=== PATIENT | male | born 1945 | race Caucasian/White ===

== ENCOUNTER 2017-10-18 00:05 | Inpatient (IN) | payer MEDICARE, OTHER ==
[~2017-10-18] VITALS: Ht 167.6 cm; Wt 71.4 kg
[~2017-10-18 00:05] MED LIST: ACET-1008 PO; AMLO2.5T2 PO; AMLO2.5T21 PO; ASPI1CPM9 PO; ATI0.5T PO; BUPR200T2 PO; GABA-532 PO; HYDR-3964 PO; MAG30ORA PO; MAGN400O6 PO; NAPR250T4 PO; PANT-47 PO; QUET200T PO; SIMV20TA5 PO; WOOL454C TP
[2017-10-18] MEDS ORDERED: normal saline 1000ML IV soln IV ONE (00:55)
[2017-10-18] MEDS ORDERED: piperacillin/tazo 3.375gm/50ml 50 ML IV ONE (00:55)
[2017-10-18 01:02] LABS: BASOPHILS % (AUTO) 0.5 % (0-1); EOSINOPHILS # (AUTO) 0.1 X10'3 (0-0.9); EOSINOPHILS % (AUTO) 1.2 % (0-6); HEMATOCRIT 39.3 % (42.0-52.0); HEMOGLOBIN 12.7 g/dl (14.0-17.9); LYMPHOCYTES # (AUTO) 1.6 X10'3 (1.1-4.8); LYMPHOCYTES % (AUTO) 25.7 % (21-51); MEAN CORPUSCULAR HGB CONC 32.3 % (33.0-36.5); MEAN CORPUSCULAR VOLUME 89.5 FL (78-98); MEAN PLATELET VOLUME 7.9 FL (7.4-10.4); MONOCYTES # (AUTO) 1.4 X10'3 (0-0.9); MONOCYTES % (AUTO) 22.5 % (2-12); NEUTROPHILS % (AUTO) 50.1 % (42-75); PLATELET COUNT 244 X10'3 (140-440); RED CELL DISTRIBUTION WIDTH 15.9 % (11.5-14.5); WHITE BLOOD COUNT 6.1 X10'3 (4.5-11.0)
[2017-10-18 01:09] LABS: PARTIAL THROMBOPLASTIN TIME 27 SECONDS (22-32); PROTHROMBIN TIME 10.5 SECONDS (9.0-12.0)
[2017-10-18 01:12] LABS: ALANINE AMINOTRANSFERASE 54 U/L (12-78); ALBUMIN 3.3 G/DL (3.4-5.0); ALBUMIN/GLOBULIN RATIO 0.7 (1.1-1.5); ALKALINE PHOSPHATASE 164 IU/L (46-116); ANION GAP 17 (8-16); ASPARTATE AMINO TRANSFERASE 91 U/L (10-37); BILIRUBIN,TOTAL 0.3 MG/DL (0.1-1.0); BLOOD UREA NITROGEN 13 MG/DL (7-18); BUN/CREATININE RATIO 12.6 (5.4-32.0); CHLORIDE 103 MMOL/L (99-107); CREATININE 1.03 MG/DL (0.60-1.10); GLUCOSE 101 MG/DL (70-104); MAGNESIUM 1.9 MG/DL (1.5-2.4); SODIUM 140 MMOL/L (135-145); TOTAL CARBON DIOXIDE 20.3 MMOL/L (24-32); eGFR 71 ML/MIN
[2017-10-18 01:14] LABS: POTASSIUM 2.9 MMOL/L (3.5-5.1)
[2017-10-18] MEDS ORDERED: potassium Cl 40 mEq/NS 500ml IV ONE (01:20)
[2017-10-18] MEDS ORDERED: ondansetron/PF 4mg/2ml inj IV ONE (01:35)
[2017-10-18] MEDS ORDERED: morphine 4 MG/ML inj SYRINge IV ONE (01:35)
[2017-10-18 01:57] LABS: CLARITY,URINE CLEAR (Clear); COLOR,URINE YELLOW (Yellow); GLUCOSE, URINE NEGATIVE (Neg); KETONES,URINE TRACE mg/dl (Neg); LEUKOCYTE ESTERASE ,URINE SMALL (Neg); NITRITES, URINE POSITIVE (Neg); OCCULT BLOOD,URINE NEGATIVE (Neg); PROTEIN,URINE NEGATIVE (Neg); UROBILINOGEN,URINE 0.2 E.U/dL (0.2-1.0)
[2017-10-18 01:58] LABS: UA COLLECTION TYPE STRAIGHT CATH
[2017-10-18 02:03] LABS: BACTERIA,URINE 3+ /HPF (Neg); RBC,URINE NONE SEEN /HPF (0-2); SQUAMOUS EPITHELIAL CELL,UR NONE SEEN /LPF (FEW)
[2017-10-18] MEDS ORDERED: potassium Cl 40MEQ/NS 500ml 500 ML IV ONE (02:15)
[2017-10-18] MEDS ORDERED: normal saline 1000ml 1,000 ML IV ONE (02:30)
[2017-10-18] MEDS ORDERED: ondansetron/PF 4mg/2ml inj IV PRN (04:25)
[2017-10-18] MEDS ORDERED: mag hydrox/Alum hydrox/simeth 30ml oral suspension PO PRN (04:25)
[2017-10-18] MEDS ORDERED: magnesium hydroxide 30ml (MOM) UD suspension PO PRN (04:25)
[2017-10-18] MEDS ORDERED: LORazepam 0.5 MG tablet PO PRN (04:30)
[2017-10-18 05:24] VITALS: BP 135/79
[2017-10-18] MEDS: normal saline 1000ml 1,000 ML IV SCH ×2 (06:58→17:12)
[2017-10-18] MEDS: heparin, porcine 5000 units/ml vial SQ SCH ×2 (08:00→20:25)
[2017-10-18] MEDS: CefTRIAXone/D5W-Rocephin 1gm 50 ML IV SCH (08:07)
[2017-10-18 10:00] VITALS: BP 153/85
[2017-10-18 18:00] VITALS: BP 152/84
[2017-10-18] MEDS ORDERED: potassium Cl 20 mEq SR tablet PO PRN (19:35)
[2017-10-18] MEDS ORDERED: potassium Cl 40MEQ/NS 500ml 500 ML IV PRN ×2 (19:35)
[2017-10-18] MEDS: potassium Cl 20 mEq SR tablet PO PRN (20:15)
[2017-10-18] MEDS: lactobacillus rhamnosus 10,000 MMU CELLS/CAPSULE PO SCH (20:15)
[2017-10-18] MEDS: acetaminophen 325mg tablet PO PRN (20:24)
[2017-10-18] MEDS ORDERED: amLODIPine 2.5mg tablet PO SCH (21:00)
[2017-10-18] MEDS ORDERED: atorvastatin 10mg tablet PO SCH (21:00)
[2017-10-18] MEDS ORDERED: gabapentin 300mg capsule PO SCH (21:00)
[2017-10-18 22:00] VITALS: BP 150/84
[2017-10-19] MEDS: potassium Cl 20 mEq SR tablet PO PRN ×2 (00:08→04:09)
[2017-10-19 05:48] LABS: HEMATOCRIT 33.9 % (42.0-52.0); HEMOGLOBIN 11.6 g/dl (14.0-17.9); MEAN CORPUSCULAR HEMOGLOBIN 30.5 PG (27.0-31.0); MEAN CORPUSCULAR HGB CONC 34.3 % (33.0-36.5); MEAN CORPUSCULAR VOLUME 89.1 FL (78-98); MEAN PLATELET VOLUME 7.7 FL (7.4-10.4); PLATELET COUNT 189 X10'3 (140-440); RED BLOOD COUNT 3.81 X10'6 (4.70-6.10); RED CELL DISTRIBUTION WIDTH 16.7 % (11.5-14.5); WHITE BLOOD COUNT 5.1 X10'3 (4.5-11.0)
[2017-10-19 06:00] VITALS: BP 143/87
[2017-10-19 06:08] LABS: ALANINE AMINOTRANSFERASE 39 U/L (12-78); ALBUMIN 2.9 G/DL (3.4-5.0); ALBUMIN/GLOBULIN RATIO 0.7 (1.1-1.5); ALKALINE PHOSPHATASE 138 IU/L (46-116); ANION GAP 9 (8-16); ASPARTATE AMINO TRANSFERASE 53 U/L (10-37); BILIRUBIN,TOTAL 0.3 MG/DL (0.1-1.0); BLOOD UREA NITROGEN 8 MG/DL (7-18); BUN/CREATININE RATIO 8.5 (5.4-32.0); CALCIUM 8.6 MG/DL (8.5-10.1); CHLORIDE 106 MMOL/L (99-107); CREATININE 0.94 MG/DL (0.60-1.10); GLUCOSE 97 MG/DL (70-104); POTASSIUM 4.2 MMOL/L (3.5-5.1); SODIUM 138 MMOL/L (135-145); TOTAL CARBON DIOXIDE 23.1 MMOL/L (24-32); TOTAL PROTEIN 7.2 G/DL (6.4-8.2); eGFR 79 ML/MIN
[2017-10-19 06:14] LABS: ANISOCYTOSIS 1+; PLATELET ESTIMATE NORMAL; TOTAL CELLS COUNTED 100
[2017-10-19] MEDS: lactobacillus rhamnosus 10,000 MMU CELLS/CAPSULE PO SCH (08:30)
[2017-10-19] MEDS: CefTRIAXone/D5W-Rocephin 1gm 50 ML IV SCH (08:31)
[2017-10-19] MEDS: heparin, porcine 5000 units/ml vial SQ SCH (08:31)
[2017-10-19] MEDS: acetaminophen 325mg tablet PO PRN (08:40)
[2017-10-19] MEDS ORDERED: LEVO500T2 PO (11:04)
[2017-10-19 15:30] VITALS: BP 147/97
== END 2017-10-19 17:51 | disposition home health service (06) | DRG 872 ==
LOC: ER 00:06 → ED HOLD 04:24 → CMPBEDREQ 05:00 → ORTHO 4S 05:13
PROVIDERS: ADMIT Internal Medicine; ATTEND Internal Medicine
PROC: 4A10X4Z Monitoring of Central Nervous Electrical Activity, External Approach (ICD-10-PCS; principal; 2017-10-18)
DX: A41.9 Sepsis, unspecified organism (principal); N39.0 Urinary tract infection, site not specified; I69.351 Hemiplegia and hemiparesis following cerebral infarction affecting right dominant side; E87.2 Acidosis; E86.0 Dehydration; R65.20 Severe sepsis without septic shock; E87.6 Hypokalemia; N18.9 Chronic kidney disease, unspecified; E78.00 Pure hypercholesterolemia, unspecified; F41.9 Anxiety disorder, unspecified; G47.33 Obstructive sleep apnea (adult) (pediatric); G62.9 Polyneuropathy, unspecified; I12.9 Hypertensive chronic kidney disease with stage 1 through stage 4 chronic kidney disease, or unspecified chronic kidney disease; I25.10 Atherosclerotic heart disease of native coronary artery without angina pectoris; R55 Syncope and collapse; W18.39XA Other fall on same level, initial encounter; B96.1 Klebsiella pneumoniae [K. pneumoniae] as the cause of diseases classified elsewhere; I25.2 Old myocardial infarction; Z99.3 Dependence on wheelchair; Z90.49 Acquired absence of other specified parts of digestive tract; Z95.1 Presence of aortocoronary bypass graft; Z88.2 Allergy status to sulfonamides; Z88.8 Allergy status to other drugs, medicaments and biological substances; Z79.899 Other long term (current) drug therapy; Z85.038 Personal history of other malignant neoplasm of large intestine; Z85.46 Personal history of malignant neoplasm of prostate; Z86.79 Personal history of other diseases of the circulatory system; Y93.89 Activity, other specified; Y99.8 Other external cause status; Y92.098 Other place in other non-institutional residence as the place of occurrence of the external cause
CPT/HCPCS: 36415; 70450; 70544; 70551; 71045; 80053; 81001; 82948; 83605; 83735; 84145; 85025; 85610; 85730; 87040; 87070; 87077; 87088; 87186; 93005; 95816; 97110; 97161; 97530; A4353; A6250; J0696; J1644; J2270; J2405; J2543; J3480; J7030

== ENCOUNTER 2018-04-03 11:21 | Inpatient (IN) | payer MEDICARE, OTHER ==
[~2018-04-03] VITALS: Ht 167.6 cm; Wt 72.0 kg
[~2018-04-03 11:21] MED LIST changes: -ACET-1008 PO; -AMLO2.5T2 PO; -ASPI1CPM9 PO; -BUPR200T2 PO; -HYDR-3964 PO; -MAG30ORA PO; -MAGN400O6 PO; -NAPR250T4 PO; -PANT-47 PO; -QUET200T PO; -WOOL454C TP
[2018-04-03 11:56] LABS: BASOPHILS % (AUTO) 0.4 % (0-1); EOSINOPHILS # (AUTO) 0.1 X10'3 (0-0.9); EOSINOPHILS % (AUTO) 1.3 % (0-6); HEMATOCRIT 37.8 % (42.0-52.0); HEMOGLOBIN 12.4 g/dl (14.0-17.9); LYMPHOCYTES # (AUTO) 1.3 X10'3 (1.1-4.8); LYMPHOCYTES % (AUTO) 19.8 % (21-51); MEAN CORPUSCULAR HEMOGLOBIN 30.2 PG (27.0-31.0); MEAN CORPUSCULAR HGB CONC 32.8 % (33.0-36.5); MEAN PLATELET VOLUME 8.1 FL (7.4-10.4); MONOCYTES # (AUTO) 1.7 X10'3 (0-0.9); MONOCYTES % (AUTO) 25.9 % (2-12); NEUTROPHILS # (AUTO) 3.3 X10'3 (1.8-7.7); NEUTROPHILS % (AUTO) 52.6 % (42-75); PLATELET COUNT 228 X10'3 (140-440); RED BLOOD COUNT 4.11 X10'6 (4.70-6.10); RED CELL DISTRIBUTION WIDTH 15.1 % (11.5-14.5); WHITE BLOOD COUNT 6.4 X10'3 (4.5-11.0)
[2018-04-03 12:03] LABS: INR 1.1 INR; PROTHROMBIN TIME 10.8 SECONDS (9.0-12.0)
[2018-04-03 12:08] LABS: ALANINE AMINOTRANSFERASE 69 U/L (12-78); ALBUMIN 3.3 G/DL (3.4-5.0); ALBUMIN/GLOBULIN RATIO 0.7 (1.1-1.5); ALKALINE PHOSPHATASE 151 IU/L (46-116); ANION GAP 14 (8-16); ASPARTATE AMINO TRANSFERASE 70 U/L (10-37); BILIRUBIN,TOTAL 0.4 MG/DL (0.1-1.0); BLOOD UREA NITROGEN 16 MG/DL (7-18); CALCIUM 8.6 MG/DL (8.5-10.1); CHLORIDE 100 MMOL/L (99-107); GLUCOSE 127 MG/DL (70-104); POTASSIUM 3.2 MMOL/L (3.5-5.1); SODIUM 138 MMOL/L (135-145); TOTAL CARBON DIOXIDE 24.2 MMOL/L (24-32); TOTAL PROTEIN 7.8 G/DL (6.4-8.2); eGFR > 90 ML/MIN
[2018-04-03 12:13] LABS: PLATELET ESTIMATE NORMAL; TOTAL CELLS COUNTED 100
[2018-04-03] MEDS ORDERED: magnesium hydroxide 30ml (MOM) UD suspension PO PRN (12:40)
[2018-04-03] MEDS ORDERED: magnesium Cl slow-release 64mg tablet PO PRN (12:40)
[2018-04-03] MEDS ORDERED: nitroGLYCERIN 0.4mg SUBLingual tab SL PRN (12:40)
[2018-04-03] MEDS ORDERED: HYDROcodone/acetaminophen 5mg/325mg tablet PO PRN (12:40)
[2018-04-03] MEDS ORDERED: HYDROcodone/acetaminophen 10/325mg tab PO PRN (12:40)
[2018-04-03] MEDS ORDERED: potassium Cl 40MEQ/NS 500ml 500 ML IV PRN ×2 (12:40)
[2018-04-03] MEDS ORDERED: magnesium 4gm in 100ml NS 100 ML IV PRN (12:40)
[2018-04-03] MEDS ORDERED: regadenoson 0.4mg/5ml syringe IV PRN (12:40)
[2018-04-03] MEDS ORDERED: ondansetron/PF 4mg/2ml inj IV PRN (12:40)
[2018-04-03] MEDS ORDERED: potassium Cl 20 mEq SR tablet PO PRN (12:40)
[2018-04-03] MEDS ORDERED: mag hydrox/Alum hydrox/simeth 30ml oral suspension PO PRN (12:40)
[2018-04-03] MEDS ORDERED: metoprolol tartrate 1mg/ml inj IV PRN (12:40)
[2018-04-03] MEDS ORDERED: acetaminophen 325mg tablet PO PRN ×2 (12:40)
[2018-04-03] MEDS ORDERED: morphine 4 MG/ML inj SYRINge IV PRN ×2 (12:40)
[2018-04-03] MEDS ORDERED: aminophylline 250mg/10ml inj. IV PRN (12:40)
[2018-04-03] MEDS ORDERED: AMLO5TAB PO (15:56)
[2018-04-03] MEDS ORDERED: BUPR200T2 PO (15:57)
[2018-04-03] MEDS ORDERED: BUPR200T3 PO (15:57)
[2018-04-03] MEDS ORDERED: CALC-642 PO (15:58)
[2018-04-03] MEDS ORDERED: GABA-532 PO (15:59)
[2018-04-03] MEDS ORDERED: ESCI20TA38 PO (16:00)
[2018-04-03] MEDS ORDERED: MULT-933 PO (16:01)
[2018-04-03] MEDS ORDERED: OFLO5DRO5 EACH EAR (16:02)
[2018-04-03] MEDS ORDERED: OFLO5DRO3 (16:02)
[2018-04-03] MEDS ORDERED: POTA-82 PO (16:03)
[2018-04-03] MEDS ORDERED: QUET300T19 PO (16:05)
--- NOTE | 2018-04-03 16:13 | NUR ---
ATTEMPTED TO CALL REPORT TO LORIE COTEENVIRONMENTAL PROTECTION SPECIALIST: SHE IS GIVING PAIN MEDICATION
--- NOTE | 2018-04-03 16:20 | NUR ---
Patient in room ED 2. I have received report from KERA Chapman and had the opportunity to ask questions and assume patient care.
[2018-04-03 17:20] VITALS: BP 187/107
[2018-04-03 17:26] VITALS: BP 164/94
[2018-04-03] MEDS ORDERED: LORazepam 0.5 MG tablet PO PRN (17:35)
[2018-04-03] MEDS: ofloxacin 0.3% 5ml otic drops EACH EAR SCH ×2 (18:00→21:37)
[2018-04-03] MEDS ORDERED: ofloxacin 0.3% 5ml otic drops EACH EAR SCH (18:00)
--- NOTE | 2018-04-03 18:20 | NUR ---
Received report from Lynn COTE, pt is in no apparent distress, call light and items of freq use within reach.
[2018-04-03] MEDS: potassium Cl 20 mEq SR tablet PO PRN ×2 (18:33→22:46)
--- NOTE | 2018-04-03 18:45 | NUR ---
Problems reprioritized. Patient report given, questions answered & plan of care reviewed with KERA Sanford.
[2018-04-03 20:00] VITALS: BP 169/95
[2018-04-03] MEDS ORDERED: BUPROPION HCL 200 MG PO SCH (20:00)
[2018-04-03] MEDS ORDERED: Cipro HC otic suspension 10ML bottle EACH EAR SCH (20:00)
[2018-04-03] MEDS: buPROPion SR 100mg tab PO SCH (20:33)
[2018-04-03] MEDS: quetiapine 100mg tablet PO SCH (20:33)
[2018-04-03] MEDS: atorvastatin 10mg tablet PO SCH (20:34)
[2018-04-03] MEDS: gabapentin 300mg capsule PO SCH (20:34)
--- NOTE | 2018-04-03 20:45 | NUR ---
pt stated he wanted me to call his caregiver Melissa and let her know he is at [facility] and what room he was in and that his kitten need new water. I put the caregivers number in the chart
[2018-04-03] MEDS ORDERED: non-formulary drug (Quetiapine Fumarate 1 TAB) PO SCH (21:00)
[2018-04-03] MEDS ORDERED: non-formulary drug (Simvastatin* (Zocor*) 1 TAB) PO SCH (21:00)
[2018-04-04] VITALS (11 sets, daily range): BP systolic 94–134; BP diastolic 56–77
[2018-04-04 05:32] LABS: ALBUMIN 3.2 G/DL (3.4-5.0); ANION GAP 12 (8-16); BLOOD UREA NITROGEN 24 MG/DL (7-18); CALCIUM 8.8 MG/DL (8.5-10.1); CHLORIDE 102 MMOL/L (99-107); CREATININE 1.33 MG/DL (0.60-1.10); GLUCOSE 102 MG/DL (70-104); MEAN CORPUSCULAR HEMOGLOBIN 30.1 PG (27.0-31.0); MEAN CORPUSCULAR HGB CONC 33.4 % (33.0-36.5); MEAN PLATELET VOLUME 8.4 FL (7.4-10.4); PLATELET COUNT 192 X10'3 (140-440); POTASSIUM 3.5 MMOL/L (3.5-5.1); RED CELL DISTRIBUTION WIDTH 16.1 % (11.5-14.5); SODIUM 139 MMOL/L (135-145); TOTAL CARBON DIOXIDE 24.8 MMOL/L (24-32); WHITE BLOOD COUNT 6.1 X10'3 (4.5-11.0); eGFR 53 ML/MIN
[2018-04-04] MEDS: ofloxacin 0.3% 5ml otic drops EACH EAR SCH ×5 (06:00→22:00)
--- NOTE | 2018-04-04 06:21 | NUR ---
Gave report to Barbara COTE, pt is resting on RA, in no apparent distress, call light and items of freq use within reach,
--- NOTE | 2018-04-04 06:24 | NUR ---
Patient in room GIDEON 346. I have received report from KERA Sanford and had the opportunity to ask questions and assume patient care.
[2018-04-04 06:42] LABS: ANISOCYTOSIS 1+; PLATELET ESTIMATE NORMAL; TOTAL CELLS COUNTED 100
[2018-04-04] MEDS: K and/or MAG REPLACEMENT MC SCH (07:08)
[2018-04-04] MEDS: potassium Cl 20 mEq SR tablet PO SCH (07:27)
[2018-04-04] MEDS: gabapentin 300mg capsule PO SCH ×2 (07:27→20:24)
[2018-04-04] MEDS: citalopram 20mg tablet PO SCH (07:27)
[2018-04-04] MEDS: aspirin 81mg tablet.DR PO SCH (07:27)
[2018-04-04] MEDS: multivitamins, therapeutics tablet PO SCH (07:28)
[2018-04-04] MEDS: buPROPion SR 100mg tab PO SCH ×2 (07:28→20:24)
[2018-04-04] MEDS: enoxaparin 40mg/0.4ml syringe SQ SCH (07:29)
[2018-04-04] MEDS: calcium carbonate 500mg chew tablet PO SCH (07:29)
[2018-04-04] MEDS ORDERED: non-formulary drug (Multivitamin (One Daily Multivitamin) 1 TAB) PO SCH (08:00)
[2018-04-04] MEDS ORDERED: non-formulary drug (Calcium Carbonate (Calcium) 1 TAB) PO SCH (08:00)
[2018-04-04] MEDS ORDERED: non-formulary drug (Potassium Chloride 1 TAB) PO SCH (08:00)
[2018-04-04] MEDS ORDERED: amLODIPine 5mg tablet PO SCH (08:00)
[2018-04-04] MEDS ORDERED: escitalopram 20mg tablet PO SCH (08:00)
[2018-04-04] MEDS ORDERED: non-formulary drug (Amlodipine Besylate 1 TABLET) PO SCH (08:00)
--- NOTE | 2018-04-04 08:33 | NUR ---
Pt. to lexiscan via [employer] with x2 staff. Pt BP medication help this am. Pt alert, oriented and in no apparent distress at this time.
[2018-04-04] MEDS ORDERED: aminophylline inj. 10 ML IV ONE (09:04)
[2018-04-04] MEDS ORDERED: regadenoson 0.4mg/5ml syringe IV ONE (09:04)
--- NOTE | 2018-04-04 10:17 | NUR ---
Pt. back from [facility]. Alert, oriented and in no apparent distress at this time. Pt denies pain and states that he is "just thirsty". BLL, call light in reach. Will continue to monitor pt.
--- NOTE | 2018-04-04 10:19 | NUR ---
Milton consult: Pt currently on heart healthy diet with documented PO intake 75-100% meeting nutrient needs. Patient's current documented wt of 72 kg is stable with documented wt from previous visit of 71.36 kg 10/18/17. Pt with no documented edema. Pt currently does not meet criteria for malnutrition. Will continue to follow. Addendum: 04/04/18 at [address] Amended: Links added.
[2018-04-04] MEDS ORDERED: nitroGLYCERIN 0.4mg SUBLingual tab SL PRN (12:25)
--- NOTE | 2018-04-04 12:45 | NUR ---
Pt. complained of chest pain 7/10 that is crushing and not radiating. Pt. stated "this is the pain I had before coming in here". 1230 EKG taken, VS as follows: BP 140/79 HR 77 O2 95% RA, x1 Nitro sublingual given. 1235 pain is now a 1/10 and no long pressure feeling. Vital signs now: BP 130/80 HR 75 O2 97% RA. Dr. Johnson read EKG and stated that there is no ST elevation. Pt. is now stable.
--- NOTE | 2018-04-04 18:33 | NUR ---
Received report from Barbara COTE, pt is awake and alert all finished with dinner, call light with items of freq use within reach.
--- NOTE | 2018-04-04 18:39 | NUR ---
Problems reprioritized, questions answered & plan of care reviewed with KERA Sanford. Pt. alert, oriented and in no apparent distress at this time. pt. sitting up all finished with dinner.
[2018-04-04] MEDS ORDERED: metoprolol tartrate 12.5mg (1/2 tablet) PO SCH (20:00)
[2018-04-04] MEDS: atorvastatin 10mg tablet PO SCH (20:24)
[2018-04-04] MEDS: quetiapine 100mg tablet PO SCH (20:24)
[2018-04-05] VITALS (7 sets, daily range): BP systolic 97–146; BP diastolic 59–79
[2018-04-05] MEDS ORDERED: atropine 1 MG/1 ML vial IV PRN ×2 (02:25→03:45)
--- NOTE | 2018-04-05 02:26 | NUR ---
Tire Balancer called stated pt was having burst of 2nd degree heart block, pt states he having 2/10 chest pain, notified Dr. menjivar, performed EKG, VS: B/P: 102/56, O2: 95RA, HR:68, RR:18, Dr. Menjivar ordered 0.5mg IV Q10min up to 3mg to keep HR greater than 50.
--- NOTE | 2018-04-05 03:10 | NUR ---
Called report to Alfonzo COTE on the ACCE unit transfered pt in hospital bed
[2018-04-05 06:27] LABS: HEMATOCRIT 35.4 % (42.0-52.0); HEMOGLOBIN 11.6 g/dl (14.0-17.9); MEAN CORPUSCULAR HEMOGLOBIN 29.7 PG (27.0-31.0); MEAN CORPUSCULAR HGB CONC 32.8 % (33.0-36.5); MEAN CORPUSCULAR VOLUME 90.6 FL (78-98); MEAN PLATELET VOLUME 8.2 FL (7.4-10.4); PLATELET COUNT 196 X10'3 (140-440); RED BLOOD COUNT 3.91 X10'6 (4.70-6.10); RED CELL DISTRIBUTION WIDTH 16.1 % (11.5-14.5); WHITE BLOOD COUNT 5.6 X10'3 (4.5-11.0)
[2018-04-05 07:27] LABS: TOTAL CELLS COUNTED 100
[2018-04-05 07:28] LABS: ANISOCYTOSIS 1+; PLATELET ESTIMATE NORMAL
[2018-04-05] MEDS: ofloxacin 0.3% 5ml otic drops EACH EAR SCH ×5 (07:30→22:00)
[2018-04-05] MEDS: citalopram 20mg tablet PO SCH (08:00)
[2018-04-05] MEDS: K and/or MAG REPLACEMENT MC SCH (08:00)
[2018-04-05] MEDS: potassium Cl 20 mEq SR tablet PO SCH (08:01)
[2018-04-05] MEDS: aspirin 81mg tablet.DR PO SCH (08:01)
[2018-04-05] MEDS: multivitamins, therapeutics tablet PO SCH (08:02)
[2018-04-05] MEDS: calcium carbonate 500mg chew tablet PO SCH (08:02)
[2018-04-05] MEDS: gabapentin 300mg capsule PO SCH ×2 (08:02→20:01)
[2018-04-05] MEDS: buPROPion SR 100mg tab PO SCH ×2 (08:03→20:01)
[2018-04-05] MEDS: enoxaparin 40mg/0.4ml syringe SQ SCH (08:04)
[2018-04-05 08:20] LABS: ALBUMIN 3.2 G/DL (3.4-5.0); ANION GAP 13 (8-16); BLOOD UREA NITROGEN 26 MG/DL (7-18); BUN/CREATININE RATIO 18.6 (5.4-32.0); CALCIUM 8.8 MG/DL (8.5-10.1); CHLORIDE 105 MMOL/L (99-107); GLUCOSE 96 MG/DL (70-104); MAGNESIUM 2.2 MG/DL (1.5-2.4); POTASSIUM 3.9 MMOL/L (3.5-5.1); SODIUM 140 MMOL/L (135-145); TOTAL CARBON DIOXIDE 22.3 MMOL/L (24-32); eGFR 50 ML/MIN
[2018-04-05] MEDS: isosorbide mononitrate 30mg tab.SR.24H PO SCH (09:02)
--- NOTE | 2018-04-05 12:30 | NUR ---
Patient in room MED 314. I have received report from KERA Argueta and had the opportunity to ask questions and assume patient care.
--- NOTE | 2018-04-05 18:10 | NUR ---
Patient in room MED 314. I have received report from leslie and had the opportunity to ask questions and assume patient care.
--- NOTE | 2018-04-05 18:14 | NUR ---
Problems reprioritized. Patient report given, questions answered & plan of care reviewed with Kendall Alston RN.
--- NOTE | 2018-04-05 18:16 | NUR ---
Orienteer documentation: I have reviewed and agree with all interventions, assessments performed and documented by Valentine COTE.
[2018-04-05] MEDS: atorvastatin 10mg tablet PO SCH (20:01)
[2018-04-05] MEDS: quetiapine 100mg tablet PO SCH (20:02)
[2018-04-06 02:00] VITALS: BP 125/74
[2018-04-06 07:00] VITALS: BP 115/70
[2018-04-06 07:10] LABS: HEMATOCRIT 35.2 % (42.0-52.0); HEMOGLOBIN 11.6 g/dl (14.0-17.9); MEAN CORPUSCULAR VOLUME 90.9 FL (78-98); MEAN PLATELET VOLUME 8.5 FL (7.4-10.4); PLATELET COUNT 186 X10'3 (140-440); RED BLOOD COUNT 3.87 X10'6 (4.70-6.10); RED CELL DISTRIBUTION WIDTH 16.2 % (11.5-14.5); WHITE BLOOD COUNT 5.4 X10'3 (4.5-11.0)
[2018-04-06 07:56] LABS: ALBUMIN 3.1 G/DL (3.4-5.0); ANION GAP 14 (8-16); BLOOD UREA NITROGEN 23 MG/DL (7-18); CALCIUM 8.7 MG/DL (8.5-10.1); CHLORIDE 106 MMOL/L (99-107); CREATININE 1.21 MG/DL (0.60-1.10); GLUCOSE 101 MG/DL (70-104); MAGNESIUM 2.1 MG/DL (1.5-2.4); POTASSIUM 3.8 MMOL/L (3.5-5.1); SODIUM 142 MMOL/L (135-145); TOTAL CARBON DIOXIDE 22.3 MMOL/L (24-32); eGFR 59 ML/MIN
[2018-04-06] MEDS: potassium Cl 20 mEq SR tablet PO SCH (08:00)
[2018-04-06] MEDS: K and/or MAG REPLACEMENT MC SCH (08:00)
[2018-04-06] MEDS: gabapentin 300mg capsule PO SCH (09:22)
[2018-04-06] MEDS: multivitamins, therapeutics tablet PO SCH (09:22)
[2018-04-06] MEDS: citalopram 20mg tablet PO SCH (09:23)
[2018-04-06] MEDS: calcium carbonate 500mg chew tablet PO SCH (09:23)
[2018-04-06] MEDS: aspirin 81mg tablet.DR PO SCH (09:23)
[2018-04-06] MEDS: isosorbide mononitrate 30mg tab.SR.24H PO SCH (09:23)
[2018-04-06] MEDS: enoxaparin 40mg/0.4ml syringe SQ SCH (09:24)
[2018-04-06 09:28] LABS: ANISOCYTOSIS 1+; PLATELET ESTIMATE NORMAL; TOTAL CELLS COUNTED 100
[2018-04-06 09:29] LABS: POLYCHROMASIA 1+
[2018-04-06] MEDS: buPROPion SR 100mg tab PO SCH (09:32)
[2018-04-06 11:00] VITALS: BP 109/66
--- NOTE | 2018-04-06 12:06 | NUR ---
paged asking about discharge Paged Dr. Johnson "Re: Edi Fishman in 314. is patient going home? no discharge order has been placed. Thank you, Carole ROBERTS [phone]"
[2018-04-06] MEDS ORDERED: ISOS30TA6 PO ×2 (12:35→13:19)
[2018-04-06] MEDS ORDERED: ASPI-1071 PO ×2 (12:35→13:19)
--- NOTE | 2018-04-06 13:04 | NUR ---
PAGED FOR RX PAGED DR. FISCHER- "CAN I BLACK OXIDE OPERATOR RX FROM YOU FOR STUART IRIZARRY? HE IS A [facility] PATIENT. THANK YOU, ADOLPH ROBERTS [phone]"
[2018-04-06 15:00] VITALS: BP 132/79
== END 2018-04-06 16:58 | disposition home or self-care (01) | DRG 303 ==
LOC: ER 11:22 → ED HOLD 12:38 → SUR 3N 17:00 → OBSVTOIN 04-04 13:10 → MED 3N 04-05 03:15
PROVIDERS: ADMIT Hospitalist; ATTEND Hospitalist
PROC: 4A02XM4 Measurement of Cardiac Total Activity, External Approach (ICD-10-PCS; principal; 2018-04-04)
PROC: 3E033HZ Introduction of Radioactive Substance into Peripheral Vein, Percutaneous Approach (ICD-10-PCS; 2018-04-04)
DX: I25.110 Atherosclerotic heart disease of native coronary artery with unstable angina pectoris (principal); I69.351 Hemiplegia and hemiparesis following cerebral infarction affecting right dominant side; E78.00 Pure hypercholesterolemia, unspecified; G47.30 Sleep apnea, unspecified; I12.9 Hypertensive chronic kidney disease with stage 1 through stage 4 chronic kidney disease, or unspecified chronic kidney disease; R00.1 Bradycardia, unspecified; N18.9 Chronic kidney disease, unspecified; I25.2 Old myocardial infarction; Z95.1 Presence of aortocoronary bypass graft; Z90.49 Acquired absence of other specified parts of digestive tract; Z88.2 Allergy status to sulfonamides; Z88.8 Allergy status to other drugs, medicaments and biological substances; Z79.899 Other long term (current) drug therapy; Z79.82 Long term (current) use of aspirin; Z85.038 Personal history of other malignant neoplasm of large intestine
CPT/HCPCS: 36415; 71045; 78452; 80048; 80053; 83735; 83880; 84484; 85025; 85610; 87070; 93005; 93017; A9500; G0378; J0280; J0461; J1650

== ENCOUNTER 2018-07-13 18:19 | Inpatient (IN) | payer MEDICARE, OTHER ==
[~2018-07-13] VITALS: Ht 167.6 cm; Wt 81.7 kg
[~2018-07-13 18:19] MED LIST changes: -AMLO2.5T21 PO; +ASPI-1071 PO; +BUPR200T2 PO; +CALC-642 PO; +ESCI20TA38 PO; +ISOS30TA6 PO; +MULT-933 PO; +OFLO5DRO5 EACH EAR; +POTA-82 PO; +QUET300T19 PO
[2018-07-13] MEDS ORDERED: normal saline 1000ML IV soln IVB ONE (18:35)
--- NOTE | 2018-07-13 18:43 | NUR ---
BP 60/37, layed him flat. He is still AOx4 and skin signs still clammy, cool
[2018-07-13] MEDS ORDERED: iohexol 350MG/ML 100ml bottle IV ONE (18:45)
[2018-07-13] MEDS ORDERED: normal saline 1000ML IV soln IV ONE (18:45)
--- NOTE | 2018-07-13 18:48 | NUR ---
Dr Dunham visited the pt again, hung NS Liter #2 per order.
--- NOTE | 2018-07-13 18:54 | NUR ---
to ct with monitoring bp spo2 and cardiac monitoring and RN
--- NOTE | 2018-07-13 19:09 | NUR ---
back from CT
[2018-07-13 19:10] LABS: BASOPHILS # (AUTO) 0.2 X10'3 (0-0.2); BASOPHILS % (AUTO) 0.5 % (0-1); EOSINOPHILS % (AUTO) 0 % (0-6); LYMPHOCYTES # (AUTO) 1.1 X10'3 (1.1-4.8); LYMPHOCYTES % (AUTO) 2.4 % (21-51); RED CELL DISTRIBUTION WIDTH 16.8 % (11.5-14.5)
--- NOTE | 2018-07-13 19:13 | NUR ---
Crash cart placed in the room and pt placed on pads and Dr Dunham made aware of pts condition. Pt placed in a little reverse trendelenberg. His bp seems to be improving, 3rd liter of NS started.
[2018-07-13 19:15] LABS: HEMATOCRIT 28.2 % (42.0-52.0); HEMOGLOBIN 9.1 g/dl (14.0-17.9); MEAN CORPUSCULAR HEMOGLOBIN 29.2 PG (27.0-31.0); MEAN CORPUSCULAR HGB CONC 32.3 g/dL (33.0-36.5); MEAN CORPUSCULAR VOLUME 90.1 FL (78-98); MEAN PLATELET VOLUME 8.7 FL (7.4-10.4); MONOCYTES # (AUTO) 11.8 X10'3 (0-0.9); MONOCYTES % (AUTO) 24.9 % (2-12); NEUTROPHILS # (AUTO) 34.3 X10'3 (1.8-7.7); NEUTROPHILS % (AUTO) 72.2 % (42-75); PLATELET COUNT 182 X10'3 (140-440); RED BLOOD COUNT 3.12 X10'6 (4.70-6.10)
[2018-07-13 19:20] LABS: WHITE BLOOD COUNT 47.5 X10'3 (4.5-11.0)
[2018-07-13 19:21] LABS: ALANINE AMINOTRANSFERASE 40 U/L (12-78); ALBUMIN 2.6 G/DL (3.4-5.0); ALBUMIN/GLOBULIN RATIO 0.7 (1.1-1.5); ALKALINE PHOSPHATASE 97 IU/L (46-116); ANION GAP 15 (8-16); ASPARTATE AMINO TRANSFERASE 49 U/L (10-37); BLOOD UREA NITROGEN 33 MG/DL (7-18); BUN/CREATININE RATIO 8.3 (5.4-32.0); CALCIUM 8.5 MG/DL (8.5-10.1); CHLORIDE 101 MMOL/L (99-107); CREATININE 3.96 MG/DL (0.60-1.10); GLUCOSE 88 MG/DL (70-104); SODIUM 136 MMOL/L (135-145); TOTAL CARBON DIOXIDE 20.4 MMOL/L (24-32); TOTAL PROTEIN 6.5 G/DL (6.4-8.2); eGFR 15 ML/MIN
[2018-07-13] MEDS ORDERED: normal saline 1000ml 1,000 ML IVB ONE (19:22)
--- NOTE | 2018-07-13 19:22 | NUR ---
Dr Dunham summoned to BS again. Informed MD that when I sit him up even just a little that his bp goes to 60systolic. Showed MD his tongue and lips. They are completely dry. Ashly COTE showed us critical result of WBC 47.5.
[2018-07-13] MEDS ORDERED: normal saline 500ml IV soln 500 ML IV ONE (19:25)
[2018-07-13 19:30] LABS: INR 1.4 INR; PARTIAL THROMBOPLASTIN TIME 37 SECONDS (22-32)
--- NOTE | 2018-07-13 19:30 | NUR ---
Dr Dunham back in the room to check on pt. Xray here. EJ started. MD rabago. Jasmin charge manager made aware of critical patient room 6.
[2018-07-13] MEDS: NORepinephrine 8mg/ 250ml NS 250 ML IV PRN (19:43)
--- NOTE | 2018-07-13 19:46 | NUR ---
Norepi increased, pt not perfusing well. His skin is cool and slightly clammy. He is very uncomfortable yet AOx4. He is supine.
--- NOTE | 2018-07-13 19:48 | NUR ---
lungs remain clear
--- NOTE | 2018-07-13 19:58 | NUR ---
Dr. Dunham at for Central LINE
[2018-07-13] MEDS ORDERED: magnesium 2GM in 50ml NS 50 ML IV STA (19:59)
[2018-07-13] MEDS ORDERED: HYDR50TA3 PO (20:05)
[2018-07-13] MEDS ORDERED: GABA-534 PO (20:05)
[2018-07-13] MEDS ORDERED: AMLO5TAB PO (20:05)
--- NOTE | 2018-07-13 20:09 | NUR ---
Magnesium 2 gm started on IV pump at rate per protocol
--- NOTE | 2018-07-13 20:12 | NUR ---
Increased norepi bp 88/63
--- NOTE | 2018-07-13 20:25 | NUR ---
Praveen IV site changed to the central line. Pt states he is very tired. He says he is just SOB. Lungs Clear. No UOP.
--- NOTE | 2018-07-13 20:39 | NUR ---
lights dimmed, pt has fallen asleep.
[2018-07-13] MEDS ORDERED: CefTRIAXone/D5W-Rocephin 1gm 50 ML IV ONE (21:05)
--- NOTE | 2018-07-13 21:42 | NUR ---
Urine shown to Dr Head. Sent to lab. Only 30ml uop
[2018-07-13] MEDS ORDERED: normal saline 1000ml 1,000 ML IV SCH (21:43)
[2018-07-13] MEDS ORDERED: piperacillin/tazo 4.5gm/100ml 100 ML IV SCH (21:55)
[2018-07-13] MEDS ORDERED: NORepinephrine 8mg/ 250ml NS 250 ML IV PRN (21:56)
[2018-07-13] MEDS ORDERED: morphine 2 MG/ML inj. syringe IV PRN (22:00)
[2018-07-13] MEDS ORDERED: morphine 4 MG/ML inj SYRINge IV PRN (22:00)
[2018-07-13] MEDS ORDERED: acetaminophen 325mg tablet PO PRN (22:00)
[2018-07-13] MEDS ORDERED: ondansetron/PF 4mg/2ml inj IV PRN (22:00)
[2018-07-13] MEDS: normal saline 1000ml 1,000 ML IV SCH (22:16)
--- NOTE | 2018-07-13 22:30 | NUR ---
I have received report from KERA Durham and had the opportunity to ask questions while awaiting pt arrival.
--- NOTE | 2018-07-13 22:50 | NUR ---
Received pt via brittney from ED with Levo infusing via CVL to maintain MAP of 65.
[2018-07-13 23:00] VITALS: BP 114/59
[2018-07-13 23:10] LABS: CLARITY,URINE CLOUDY (Clear); COLOR,URINE YELLOW (Yellow); GLUCOSE, URINE NEGATIVE (Neg); KETONES,URINE NEGATIVE (Neg); LEUKOCYTE ESTERASE ,URINE MODERATE (Neg); NITRITES, URINE NEGATIVE (Neg); OCCULT BLOOD,URINE MODERATE (Neg); PROTEIN,URINE >=300 mg/dl (Neg); UROBILINOGEN,URINE 0.2 E.U/dL (0.2-1.0)
[2018-07-13 23:11] LABS: UA COLLECTION TYPE FOLEY CATH
[2018-07-13 23:50] LABS: WBC,URINE TNTC /HPF (0-4)
[2018-07-13 23:51] LABS: BACTERIA,URINE FEW /HPF (Neg); SQUAMOUS EPITHELIAL CELL,UR MODERATE /LPF (FEW)
[2018-07-14] VITALS (24 sets, daily range): BP systolic 90–129; BP diastolic 41–74
[2018-07-14 00:05] LABS: RBC,URINE 0-2 /HPF (0-2)
[2018-07-14 00:07] LABS: TRANSITIONAL EPI CELLS,URINE MODERATE /HPF
[2018-07-14 00:29] LABS: TOTAL CELLS COUNTED 100
[2018-07-14 00:31] LABS: ANISOCYTOSIS 1+; PLATELET ESTIMATE NORMAL
[2018-07-14 01:28] LABS: BASOPHILS # (AUTO) 0.1 X10'3 (0-0.2); BASOPHILS % (AUTO) 0.3 % (0-1); EOSINOPHILS % (AUTO) 0 % (0-6); HEMOGLOBIN 9.4 g/dl (14.0-17.9); LYMPHOCYTES # (AUTO) 0.6 X10'3 (1.1-4.8); LYMPHOCYTES % (AUTO) 1.8 % (21-51); MEAN CORPUSCULAR HEMOGLOBIN 29.9 PG (27.0-31.0); MEAN CORPUSCULAR HGB CONC 32.6 g/dL (33.0-36.5); MEAN CORPUSCULAR VOLUME 91.7 FL (78-98); MEAN PLATELET VOLUME 8.3 FL (7.4-10.4); MONOCYTES # (AUTO) 5.6 X10'3 (0-0.9); NEUTROPHILS # (AUTO) 26.7 X10'3 (1.8-7.7); NEUTROPHILS % (AUTO) 80.9 % (42-75); PLATELET COUNT 177 X10'3 (140-440); RED BLOOD COUNT 3.16 X10'6 (4.70-6.10); RED CELL DISTRIBUTION WIDTH 17.1 % (11.5-14.5)
[2018-07-14 01:35] LABS: ALBUMIN 2.4 G/DL (3.4-5.0); ANION GAP 17 (8-16); BILIRUBIN,TOTAL 0.7 MG/DL (0.1-1.0); BLOOD UREA NITROGEN 33 MG/DL (7-18); BUN/CREATININE RATIO 8.4 (5.4-32.0); CALCIUM 7.4 MG/DL (8.5-10.1); CHLORIDE 103 MMOL/L (99-107); CREATININE 3.93 MG/DL (0.60-1.10); GLUCOSE 109 MG/DL (70-104); MAGNESIUM 1.5 MG/DL (1.5-2.4); PHOSPHORUS 3.5 MG/DL (2.3-4.5); POTASSIUM 4.3 MMOL/L (3.5-5.1); SODIUM 136 MMOL/L (135-145); TOTAL CARBON DIOXIDE 16.4 MMOL/L (24-32); TOTAL PROTEIN 6.3 G/DL (6.4-8.2); eGFR 15 ML/MIN
[2018-07-14 01:36] LABS: ALANINE AMINOTRANSFERASE 38 U/L (12-78); ALBUMIN/GLOBULIN RATIO 0.6 (1.1-1.5); ALKALINE PHOSPHATASE 107 IU/L (46-116); ASPARTATE AMINO TRANSFERASE 44 U/L (10-37)
--- NOTE | 2018-07-14 03:30 | NUR ---
Pt complaining of SOB and chest pain with sudden spike in temp. Tylenol given, EKG ordered, BNP added to labs.
--- NOTE | 2018-07-14 04:00 | NUR ---
Received order for Ativan from CARLOS Spencer for anxiety.
[2018-07-14] MEDS ORDERED: LORazepam 2 mg/ml vial IV PRN (04:35)
[2018-07-14] MEDS: NORepinephrine 8mg/ 250ml NS 250 ML IV PRN ×3 (04:41→17:17)
--- NOTE | 2018-07-14 06:30 | NUR ---
Patient in room ICU 2041. I have received report from KERA Roy and had the opportunity to ask questions and assume patient care.
--- NOTE | 2018-07-14 06:34 | NUR ---
Problems reprioritized. Patient report given, questions answered & plan of care reviewed with KERA Husain.
[2018-07-14] MEDS: pantoprazole 40mg Tablet.DR PO SCH (07:36)
[2018-07-14] MEDS ORDERED: piperacillin/tazo 3.375gm/50ml 50 ML IV SCH (08:00)
[2018-07-14] MEDS ORDERED: CLON0.1T PO (08:47)
[2018-07-14] MEDS: calcium carbonate 500mg tablet PO SCH (09:39)
[2018-07-14] MEDS: multivitamins, therapeutics tablet PO SCH (09:39)
[2018-07-14] MEDS: buPROPion SR 100mg tab PO SCH ×2 (09:39→20:23)
[2018-07-14] MEDS: citalopram 20mg tablet PO SCH (09:39)
--- NOTE | 2018-07-14 10:28 | NUR ---
Connors catheter dc'd per MD orders, tolerated well. Bed linens all changed.
--- NOTE | 2018-07-14 11:30 | NUR ---
Work of breathing increased and upper airways began sounding like high pitched wheezes vs stridor. Progressively worse over last hour, O2 sats average around 91% on 4L. MD was called and informed of pt status. He gave orders for epi breathing treatment, one time lasix and solumedrol, after asking questions related to anion gap, BP, levophed, fluid boluses in the ER etc. He also was informed about positive blood cultures and gave orders to stop the vanco and zosyn and start maxipime daily.
[2018-07-14] MEDS ORDERED: furosemide 40mg/4ml inj IV ONE (11:35)
[2018-07-14] MEDS ORDERED: racepinephrine 11.25mg/0.5ml nebule IH ONE (11:35)
[2018-07-14] MEDS: normal saline 1000ml 1,000 ML IV SCH (11:43)
[2018-07-14] MEDS ORDERED: racepinephrine 11.25mg/0.5ml nebule ONE (11:45)
[2018-07-14] MEDS ORDERED: cefepime 2gm inj IV SCH (12:00)
[2018-07-14] MEDS: cefepime 1GM/NS ADD-VANTAGE 100 ML IV SCH (12:24)
[2018-07-14] MEDS: methylPREDNISolone sod succ 125mg/2ml vial IV SCH ×2 (13:06→20:23)
--- NOTE | 2018-07-14 18:20 | NUR ---
Problems reprioritized. Patient report given, questions answered & plan of care reviewed with KERA Roy.
--- NOTE | 2018-07-14 18:30 | NUR ---
Patient in room ICU 2041. I have received report from KERA Husain and had the opportunity to ask questions and assume patient care.
[2018-07-14] MEDS: gabapentin 300mg capsule PO SCH (20:22)
[2018-07-14] MEDS: lactobacillus rhamnosus 10,000 MMU CELLS/CAPSULE PO SCH (20:23)
[2018-07-14] MEDS: atorvastatin 10mg tablet PO SCH (20:23)
[2018-07-14] MEDS ORDERED: gabapentin 400mg capsule PO SCH (21:00)
[2018-07-15] VITALS (26 sets, daily range): BP systolic 89–122; BP diastolic 56–83
[2018-07-15] MEDS ORDERED: vancomycin inj 1,250 MG in NS 250ml IV soln IV SCH ×2
[2018-07-15] MEDS: normal saline 1000ml 1,000 ML IV SCH ×2 (01:32→13:56)
[2018-07-15] MEDS: methylPREDNISolone sod succ 125mg/2ml vial IV SCH ×4 (01:34→20:51)
[2018-07-15 03:40] LABS: BASOPHILS % (AUTO) 0.3 % (0-1); EOSINOPHILS # (AUTO) 0.2 X10'3 (0-0.9); EOSINOPHILS % (AUTO) 1.3 % (0-6); HEMATOCRIT 26.9 % (42.0-52.0); HEMOGLOBIN 8.9 g/dl (14.0-17.9); LYMPHOCYTES # (AUTO) 0.3 X10'3 (1.1-4.8); LYMPHOCYTES % (AUTO) 1.7 % (21-51); MEAN CORPUSCULAR HEMOGLOBIN 29.9 PG (27.0-31.0); MEAN CORPUSCULAR HGB CONC 32.9 g/dL (33.0-36.5); MEAN PLATELET VOLUME 8.5 FL (7.4-10.4); MONOCYTES # (AUTO) 1.4 X10'3 (0-0.9); MONOCYTES % (AUTO) 9.1 % (2-12); NEUTROPHILS # (AUTO) 13.2 X10'3 (1.8-7.7); NEUTROPHILS % (AUTO) 87.6 % (42-75); PLATELET COUNT 134 X10'3 (140-440); RED BLOOD COUNT 2.96 X10'6 (4.70-6.10)
[2018-07-15 03:44] LABS: ALANINE AMINOTRANSFERASE 34 U/L (12-78); ALBUMIN 2.3 G/DL (3.4-5.0); ALBUMIN/GLOBULIN RATIO 0.5 (1.1-1.5); ALKALINE PHOSPHATASE 98 IU/L (46-116); ANION GAP 17 (8-16); ASPARTATE AMINO TRANSFERASE 29 U/L (10-37); BILIRUBIN,TOTAL 0.5 MG/DL (0.1-1.0); BLOOD UREA NITROGEN 53 MG/DL (7-18); BUN/CREATININE RATIO 11.9 (5.4-32.0); CALCIUM 8.2 MG/DL (8.5-10.1); CHLORIDE 102 MMOL/L (99-107); CREATININE 4.45 MG/DL (0.60-1.10); GLUCOSE 173 MG/DL (70-104); MAGNESIUM 1.7 MG/DL (1.5-2.4); PHOSPHORUS 4.3 MG/DL (2.3-4.5); POTASSIUM 4.2 MMOL/L (3.5-5.1); SODIUM 137 MMOL/L (135-145); TOTAL CARBON DIOXIDE 18.5 MMOL/L (24-32); TOTAL PROTEIN 6.6 G/DL (6.4-8.2); eGFR 13 ML/MIN
[2018-07-15 05:45] LABS: ANISOCYTOSIS 1+; PLATELET ESTIMATE DECREASED; TOTAL CELLS COUNTED 100
[2018-07-15 05:46] LABS: TOXIC VACUOLATION 1+
[2018-07-15 05:48] LABS: TOXIC GRANULATION 2+
[2018-07-15 05:50] LABS: LARGE PLATELETS FEW; POLYCHROMASIA FEW
--- NOTE | 2018-07-15 06:26 | NUR ---
Problems reprioritized. Patient report given, questions answered & plan of care reviewed with KERA Garcia.
--- NOTE | 2018-07-15 06:30 | NUR ---
Received report with primary nurse Jose COTE to assume full care. Problems reprioritized, pt is currently sleeping with RR of 20. Gamaliel Jaimes SRN
[2018-07-15] MEDS: pantoprazole 40mg Tablet.DR PO SCH (07:41)
[2018-07-15] MEDS: cefepime 1GM/NS ADD-VANTAGE 100 ML IV SCH (07:42)
[2018-07-15] MEDS: lactobacillus rhamnosus 10,000 MMU CELLS/CAPSULE PO SCH ×2 (08:01→20:51)
[2018-07-15] MEDS: multivitamins, therapeutics tablet PO SCH (08:01)
[2018-07-15] MEDS: buPROPion SR 100mg tab PO SCH ×2 (08:02→20:50)
[2018-07-15] MEDS: calcium carbonate 500mg tablet PO SCH (08:02)
[2018-07-15] MEDS: citalopram 20mg tablet PO SCH (08:02)
[2018-07-15] MEDS ORDERED: furosemide 40mg/4ml inj IV ONE (14:00)
[2018-07-15] MEDS ORDERED: furosemide 40mg/4ml inj ONE (14:04)
--- NOTE | 2018-07-15 18:17 | NUR ---
Problems reprioritized. Patient report given, questions answered & plan of care reviewed with KERA Roy.
--- NOTE | 2018-07-15 18:30 | NUR ---
Patient in room ICU 2041. I have received report from KERA Garcia and had the opportunity to ask questions and assume patient care.
[2018-07-15] MEDS: gabapentin 300mg capsule PO SCH (20:50)
[2018-07-15] MEDS: atorvastatin 10mg tablet PO SCH (20:51)
[2018-07-16] VITALS (30 sets, daily range): BP systolic 95–147; BP diastolic 57–84
[2018-07-16] MEDS: methylPREDNISolone sod succ 125mg/2ml vial IV SCH ×2 (02:02→07:49)
[2018-07-16 02:55] LABS: ALANINE AMINOTRANSFERASE 34 U/L (12-78); ALBUMIN 2.4 G/DL (3.4-5.0); ALBUMIN/GLOBULIN RATIO 0.5 (1.1-1.5); ALKALINE PHOSPHATASE 104 IU/L (46-116); ANION GAP 14 (8-16); ASPARTATE AMINO TRANSFERASE 18 U/L (10-37); BILIRUBIN,TOTAL 0.4 MG/DL (0.1-1.0); BLOOD UREA NITROGEN 76 MG/DL (7-18); BUN/CREATININE RATIO 17.8 (5.4-32.0); CHLORIDE 102 MMOL/L (99-107); CREATININE 4.27 MG/DL (0.60-1.10); GLUCOSE 189 MG/DL (70-104); MAGNESIUM 1.9 MG/DL (1.5-2.4); PHOSPHORUS 4.2 MG/DL (2.3-4.5); POTASSIUM 3.6 MMOL/L (3.5-5.1); SODIUM 138 MMOL/L (135-145); TOTAL CARBON DIOXIDE 21.6 MMOL/L (24-32); TOTAL PROTEIN 6.8 G/DL (6.4-8.2); eGFR 14 ML/MIN
[2018-07-16 03:00] LABS: BASOPHILS % (AUTO) 0.1 % (0-1); EOSINOPHILS % (AUTO) 0.1 % (0-6); HEMATOCRIT 27.3 % (42.0-52.0); HEMOGLOBIN 9.3 g/dl (14.0-17.9); LYMPHOCYTES # (AUTO) 0.3 X10'3 (1.1-4.8); LYMPHOCYTES % (AUTO) 3.1 % (21-51); MEAN CORPUSCULAR HEMOGLOBIN 30.5 PG (27.0-31.0); MEAN CORPUSCULAR HGB CONC 34.1 g/dL (33.0-36.5); MEAN CORPUSCULAR VOLUME 89.5 FL (78-98); MONOCYTES # (AUTO) 1.2 X10'3 (0-0.9); MONOCYTES % (AUTO) 10.9 % (2-12); NEUTROPHILS # (AUTO) 9.3 X10'3 (1.8-7.7); NEUTROPHILS % (AUTO) 85.8 % (42-75); PLATELET COUNT 120 X10'3 (140-440); RED BLOOD COUNT 3.05 X10'6 (4.70-6.10); RED CELL DISTRIBUTION WIDTH 17.1 % (11.5-14.5); WHITE BLOOD COUNT 10.8 X10'3 (4.5-11.0)
[2018-07-16] MEDS: normal saline 1000ml 1,000 ML IV SCH ×2 (03:16→14:50)
[2018-07-16 04:08] LABS: ANISOCYTOSIS 1+; PLATELET ESTIMATE DECREASED; TOTAL CELLS COUNTED 100
[2018-07-16 04:09] LABS: POLYCHROMASIA FEW
--- NOTE | 2018-07-16 06:20 | NUR ---
Problems reprioritized. Patient report given, questions answered & plan of care reviewed with KERA Vega.
--- NOTE | 2018-07-16 06:21 | NUR ---
Patient in room ICU 2041. I have received report from KREA Roy and had the opportunity to ask questions and assume patient care.
--- NOTE | 2018-07-16 06:22 | NUR ---
Assumed care of pt with BO Nowak. Will monitor pt & SN
[2018-07-16] MEDS: calcium carbonate 500mg tablet PO SCH (07:47)
[2018-07-16] MEDS: citalopram 20mg tablet PO SCH (07:47)
[2018-07-16] MEDS: pantoprazole 40mg Tablet.DR PO SCH (07:47)
[2018-07-16] MEDS: multivitamins, therapeutics tablet PO SCH (07:47)
[2018-07-16] MEDS: lactobacillus rhamnosus 10,000 MMU CELLS/CAPSULE PO SCH ×2 (07:48→19:42)
[2018-07-16] MEDS: buPROPion SR 100mg tab PO SCH ×2 (07:48→19:42)
[2018-07-16] MEDS: cefepime 1GM/NS ADD-VANTAGE 100 ML IV SCH (07:50)
[2018-07-16] MEDS: acetaminophen 325mg tablet PO PRN (10:45)
--- NOTE | 2018-07-16 13:05 | NUR ---
Initial: Pt admit w/ increased weakness hx paraplegia WC bound. DX urosepsis and MEGAN w/ ureteral obstruction but other kidney still not compensating per MD. Made NPO now for further test and may require ureteral stent placement. LBM 07/15. Pt PO improved to 75% breakfast today w/ Nepro on renal diet from previously 25%. GLU 189 no hx DM on solumedrol. Will monitor for additional protein needs. Rec: 1. advance to renal diet per MD once no longer NPO 2. once PO, Nepro TIDWM 3. wt per rx 4. routine bowel care Addendum: 07/16/18 at [address] Amended: Links added.
[2018-07-16] MEDS: methylPREDNISolone sod succ/PF 40mg inj. IV SCH ×2 (14:10→19:41)
--- NOTE | 2018-07-16 18:17 | NUR ---
Student Medication Administration: For this medication-pass time frame, all medication were reviewed, dispensed, administered and documented per hospital policy by SN She. Student documentation: I have reviewed and agree with all interventions, assessments performed and documented by SN She.
[2018-07-16] MEDS ORDERED: iohexol 300 MG/1 ML 50ml polymer ONE (19:48)
[2018-07-16 20:06] LABS: BASOPHILS % (AUTO) 0.1 % (0-1); EOSINOPHILS % (AUTO) 0 % (0-6); HEMATOCRIT 27.5 % (42.0-52.0); HEMOGLOBIN 9.6 g/dl (14.0-17.9); LYMPHOCYTES # (AUTO) 0.2 X10'3 (1.1-4.8); LYMPHOCYTES % (AUTO) 2.7 % (21-51); MEAN CORPUSCULAR VOLUME 88.6 FL (78-98); MEAN PLATELET VOLUME 8.9 FL (7.4-10.4); MONOCYTES # (AUTO) 0.9 X10'3 (0-0.9); MONOCYTES % (AUTO) 10.2 % (2-12); NEUTROPHILS # (AUTO) 7.7 X10'3 (1.8-7.7); PLATELET COUNT 116 X10'3 (140-440); RED CELL DISTRIBUTION WIDTH 16.4 % (11.5-14.5); WHITE BLOOD COUNT 8.9 X10'3 (4.5-11.0)
[2018-07-16 20:15] LABS: ALANINE AMINOTRANSFERASE 35 U/L (12-78); ALBUMIN 2.4 G/DL (3.4-5.0); ALBUMIN/GLOBULIN RATIO 0.6 (1.1-1.5); ALKALINE PHOSPHATASE 112 IU/L (46-116); ANION GAP 12 (8-16); ASPARTATE AMINO TRANSFERASE 23 U/L (10-37); BILIRUBIN,TOTAL 0.3 MG/DL (0.1-1.0); BLOOD UREA NITROGEN 79 MG/DL (7-18); BUN/CREATININE RATIO 22.6 (5.4-32.0); CALCIUM 9.5 MG/DL (8.5-10.1); CHLORIDE 103 MMOL/L (99-107); GLUCOSE 183 MG/DL (70-104); POTASSIUM 3.5 MMOL/L (3.5-5.1); SODIUM 135 MMOL/L (135-145); TOTAL CARBON DIOXIDE 19.6 MMOL/L (24-32); TOTAL PROTEIN 6.7 G/DL (6.4-8.2); eGFR 17 ML/MIN
[2018-07-16 20:18] LABS: INR 1.1 INR; PARTIAL THROMBOPLASTIN TIME 30 SECONDS (22-32)
--- NOTE | 2018-07-16 20:45 | NUR ---
Pt to OR accompanied by OR team, preop checklist complete.
[2018-07-16] MEDS ORDERED: sevoflurane 250ml liquid IH ONE (20:52)
[2018-07-16] MEDS ORDERED: midazolam 2 mg/2 ml injection ONE (20:53)
[2018-07-16] MEDS ORDERED: ePHEDrine 50MG/ML INJ. ONE (20:53)
[2018-07-16] MEDS ORDERED: propofol inj 20 ML IV ONE (20:53)
[2018-07-16] MEDS ORDERED: fentaNYL/PF 50MCG/1 ML 2ML syringe ONE (20:53)
[2018-07-16] MEDS: gabapentin 300mg capsule PO SCH (21:00)
[2018-07-16] MEDS: atorvastatin 10mg tablet PO SCH (21:00)
--- NOTE | 2018-07-16 21:46 | NUR ---
Received to room 2041, accompanied by Dr. Bhatt and surgical crew. See assessment records for vital signs. All sites without redness or swelling, bruising to R groin. Pt on 5L with a mask and LMA due to airway obstruction. Pt still recovering from sedation.
[2018-07-17] VITALS (20 sets, daily range): BP systolic 114–151; BP diastolic 66–92
[2018-07-17] MEDS: methylPREDNISolone sod succ/PF 40mg inj. IV SCH ×2 (01:23→08:34)
[2018-07-17 04:15] LABS: BASOPHILS % (AUTO) 0.1 % (0-1); EOSINOPHILS % (AUTO) 0.1 % (0-6); HEMATOCRIT 26.9 % (42.0-52.0); HEMOGLOBIN 9.1 g/dl (14.0-17.9); LYMPHOCYTES # (AUTO) 0.2 X10'3 (1.1-4.8); LYMPHOCYTES % (AUTO) 2.8 % (21-51); MEAN CORPUSCULAR HEMOGLOBIN 30.2 PG (27.0-31.0); MEAN CORPUSCULAR HGB CONC 33.8 g/dL (33.0-36.5); MEAN CORPUSCULAR VOLUME 89.3 FL (78-98); MONOCYTES % (AUTO) 11.7 % (2-12); NEUTROPHILS # (AUTO) 7.1 X10'3 (1.8-7.7); NEUTROPHILS % (AUTO) 85.3 % (42-75); PLATELET COUNT 108 X10'3 (140-440); RED BLOOD COUNT 3.01 X10'6 (4.70-6.10); RED CELL DISTRIBUTION WIDTH 16.7 % (11.5-14.5); WHITE BLOOD COUNT 8.3 X10'3 (4.5-11.0)
[2018-07-17 04:19] LABS: HEMOGLOBIN A1C 6.2 % (4.5-6.2)
[2018-07-17 04:28] LABS: ALANINE AMINOTRANSFERASE 30 U/L (12-78); ALBUMIN 2.3 G/DL (3.4-5.0); ALBUMIN/GLOBULIN RATIO 0.5 (1.1-1.5); ALKALINE PHOSPHATASE 105 IU/L (46-116); ANION GAP 16 (8-16); ASPARTATE AMINO TRANSFERASE 20 U/L (10-37); BILIRUBIN,TOTAL 0.3 MG/DL (0.1-1.0); BLOOD UREA NITROGEN 77 MG/DL (7-18); BUN/CREATININE RATIO 23.3 (5.4-32.0); CALCIUM 9.4 MG/DL (8.5-10.1); CHLORIDE 103 MMOL/L (99-107); GLUCOSE 197 MG/DL (70-104); MAGNESIUM 1.9 MG/DL (1.5-2.4); PHOSPHORUS 4.7 MG/DL (2.3-4.5); POTASSIUM 3.6 MMOL/L (3.5-5.1); SODIUM 137 MMOL/L (135-145); TOTAL CARBON DIOXIDE 18.1 MMOL/L (24-32); TOTAL PROTEIN 6.6 G/DL (6.4-8.2); eGFR 19 ML/MIN
[2018-07-17] MEDS: normal saline 1000ml 1,000 ML IV SCH (05:56)
--- NOTE | 2018-07-17 06:28 | NUR ---
Problems reprioritized. Patient report given, questions answered & plan of care reviewed with Art, RN.
[2018-07-17] MEDS: pantoprazole 40mg Tablet.DR PO SCH (07:30)
[2018-07-17] MEDS: lactobacillus rhamnosus 10,000 MMU CELLS/CAPSULE PO SCH ×2 (08:33→20:36)
[2018-07-17] MEDS: multivitamins, therapeutics tablet PO SCH (08:33)
[2018-07-17] MEDS: cefepime 1GM/NS ADD-VANTAGE 100 ML IV SCH (08:34)
[2018-07-17] MEDS: citalopram 20mg tablet PO SCH (08:34)
[2018-07-17] MEDS: buPROPion SR 100mg tab PO SCH ×2 (08:34→20:36)
[2018-07-17] MEDS: calcium carbonate 500mg tablet PO SCH (08:34)
--- NOTE | 2018-07-17 09:12 | NUR ---
Pt eating meal, has no complaints at this time.
[2018-07-17] MEDS: amLODIPine 5mg tablet PO SCH (10:21)
--- NOTE | 2018-07-17 11:20 | NUR ---
New PIV placed in left wrist, pt on bedpan.
--- NOTE | 2018-07-17 11:43 | NUR ---
Pt working with pt
--- NOTE | 2018-07-17 15:29 | NUR ---
Pt to transfer to [facility], room 4504H. Report called to KERA Fang
--- NOTE | 2018-07-17 15:30 | NUR ---
Patient in room ICU 2041. I have received report from Mukund RN and had the opportunity to ask questions. Awaiting pt's arrival to U 6537B.
--- NOTE | 2018-07-17 16:12 | NUR ---
Pt transferred to [facility]. All property with pt.
--- NOTE | 2018-07-17 18:42 | NUR ---
Problems reprioritized. Patient report given, questions answered & plan of care reviewed with KERA Thompson.
[2018-07-17] MEDS: atorvastatin 10mg tablet PO SCH (20:36)
[2018-07-17] MEDS: gabapentin 300mg capsule PO SCH (20:36)
[2018-07-17] MEDS: cloNIDine 0.1 mg tablet PO SCH (20:36)
[2018-07-17] MEDS ORDERED: VANCOMYCIN LEVEL IV NR (23:30)
[2018-07-18] VITALS (7 sets, daily range): BP systolic 90–145; BP diastolic 55–65
[2018-07-18 05:36] LABS: BASOPHILS % (AUTO) 0.1 % (0-1); EOSINOPHILS % (AUTO) 0 % (0-6); HEMATOCRIT 26.2 % (42.0-52.0); HEMOGLOBIN 8.8 g/dl (14.0-17.9); LYMPHOCYTES # (AUTO) 0.3 X10'3 (1.1-4.8); LYMPHOCYTES % (AUTO) 2.9 % (21-51); MEAN CORPUSCULAR HEMOGLOBIN 29.8 PG (27.0-31.0); MEAN CORPUSCULAR HGB CONC 33.5 g/dL (33.0-36.5); MEAN PLATELET VOLUME 8.9 FL (7.4-10.4); MONOCYTES # (AUTO) 3.1 X10'3 (0-0.9); NEUTROPHILS # (AUTO) 8.4 X10'3 (1.8-7.7); PLATELET COUNT 106 X10'3 (140-440); RED BLOOD COUNT 2.94 X10'6 (4.70-6.10); RED CELL DISTRIBUTION WIDTH 16.9 % (11.5-14.5); WHITE BLOOD COUNT 11.9 X10'3 (4.5-11.0)
[2018-07-18 06:03] LABS: ALANINE AMINOTRANSFERASE 34 U/L (12-78); ALBUMIN 2.3 G/DL (3.4-5.0); ALBUMIN/GLOBULIN RATIO 0.6 (1.1-1.5); ALKALINE PHOSPHATASE 114 IU/L (46-116); ANION GAP 16 (8-16); ASPARTATE AMINO TRANSFERASE 23 U/L (10-37); BILIRUBIN,TOTAL 0.3 MG/DL (0.1-1.0); BLOOD UREA NITROGEN 71 MG/DL (7-18); BUN/CREATININE RATIO 28.5 (5.4-32.0); CALCIUM 9.1 MG/DL (8.5-10.1); CHLORIDE 106 MMOL/L (99-107); CREATININE 2.49 MG/DL (0.60-1.10); GLUCOSE 123 MG/DL (70-104); MAGNESIUM 1.8 MG/DL (1.5-2.4); PHOSPHORUS 3.1 MG/DL (2.3-4.5); POTASSIUM 3.3 MMOL/L (3.5-5.1); SODIUM 141 MMOL/L (135-145); TOTAL CARBON DIOXIDE 19.2 MMOL/L (24-32); TOTAL PROTEIN 6.3 G/DL (6.4-8.2); eGFR 26 ML/MIN
--- NOTE | 2018-07-18 06:30 | NUR ---
Patient in room PCU 3022I. I have received report from Donna COTE and had the opportunity to ask questions and assume patient care.
--- NOTE | 2018-07-18 06:30 | NUR ---
Patient in room PCU 3027. I have received report from Donna COTE and had the opportunity to ask questions and assume patient care. Patient resting in bed, vitals are stable, no current needs, will continue to monitor.
--- NOTE | 2018-07-18 07:29 | NUR ---
Patient potassium 3.[address] Amaya, ordered K 40 mEq PO ONCE. No protocol for replacement ordered.
[2018-07-18] MEDS ORDERED: potassium Cl 20 mEq SR tablet PO STA (07:31)
[2018-07-18 07:37] LABS: NEUTROPHILS % (MANUAL) 75 % (42-75); TOTAL CELLS COUNTED 100
[2018-07-18 07:38] LABS: ANISOCYTOSIS 1+; LYMPHOCYTES % (MANUAL) 3 % (21-51); MONOCYTES % (MANUAL) 22 % (2-12); NUCLEATED RED BLOOD CELLS 1 /100WBC (0-0); PLATELET ESTIMATE DECREASED
[2018-07-18] MEDS: calcium carbonate 500mg tablet PO SCH (07:46)
[2018-07-18] MEDS: pantoprazole 40mg Tablet.DR PO SCH (07:47)
[2018-07-18] MEDS: citalopram 20mg tablet PO SCH (07:47)
[2018-07-18] MEDS: lactobacillus rhamnosus 10,000 MMU CELLS/CAPSULE PO SCH ×2 (07:47→20:45)
[2018-07-18] MEDS: amLODIPine 5mg tablet PO SCH (07:48)
[2018-07-18] MEDS: buPROPion SR 100mg tab PO SCH ×2 (07:48→20:45)
[2018-07-18] MEDS: multivitamins, therapeutics tablet PO SCH (07:48)
[2018-07-18] MEDS: cloNIDine 0.1 mg tablet PO SCH ×2 (07:49→20:00)
[2018-07-18] MEDS ORDERED: CefTRIAXone 2gm/D5W 50ml 50 ML IV SCH (08:00)
--- NOTE | 2018-07-18 10:06 | NUR ---
Reassessment: Pt s/p stone extraction with stent placement, kidney function improving per MD notes. Patient's diet has been advanced to regular with fluctuating PO intake previously averaging 75% however recent intake averaging 50%. Pt has increased protein needs r/t sepsis, noted that Nepro was d/c'ed, will reorder to provide pt with additional protein. BG levels closer to normal limits at 123 this morning with Solumedrol d/c'ed 07/17. LBM 07/17. Will continue to follow. Rec: 1. Continue with regular diet; monitor need for renal diet 2. Nepro TIDWM 3. wt per rx 4. routine bowel care Addendum: 07/18/18 at [facility] [place][note 2] by Cindy Heller RD Amended: Links added.
[2018-07-18] MEDS: CefTRIAXone 2gm/D5W 50ml 50 ML IV SCH (12:19)
[2018-07-18] MEDS: acetaminophen 325mg tablet PO PRN ×2 (15:11→22:54)
[2018-07-18] MEDS ORDERED: CEFT2VIA13 IV (16:02)
--- NOTE | 2018-07-18 17:41 | NUR ---
Orientee charting: I have reviewed and agree with all interventions, assessments performed and documented by Gianna COTE.
--- NOTE | 2018-07-18 18:15 | NUR ---
Patient in room PCU 3027. I have received report from MadelinRN and GiannaRN and had the opportunity to ask questions and assume patient care.
--- NOTE | 2018-07-18 18:27 | NUR ---
Problems reprioritized. Patient report given, questions answered & plan of care reviewed with Erica COTE.
[2018-07-18] MEDS: gabapentin 300mg capsule PO SCH (20:45)
[2018-07-18] MEDS: atorvastatin 10mg tablet PO SCH (20:45)
[2018-07-19 02:00] VITALS: BP 116/62
[2018-07-19 06:00] VITALS: BP 123/62
[2018-07-19 06:09] LABS: HEMOGLOBIN 9.1 g/dl (14.0-17.9); RED CELL DISTRIBUTION WIDTH 16.7 % (11.5-14.5); WHITE BLOOD COUNT 15.3 X10'3 (4.5-11.0)
[2018-07-19 06:12] LABS: HEMATOCRIT 27.8 % (42.0-52.0); MEAN CORPUSCULAR HEMOGLOBIN 29.5 PG (27.0-31.0); MEAN CORPUSCULAR HGB CONC 32.9 g/dL (33.0-36.5); MEAN CORPUSCULAR VOLUME 89.8 FL (78-98); PLATELET COUNT 122 X10'3 (140-440); RED BLOOD COUNT 3.09 X10'6 (4.70-6.10)
--- NOTE | 2018-07-19 06:36 | NUR ---
Problems reprioritized. Patient report given, questions answered & plan of care reviewed with KERA Worrell.
[2018-07-19 06:43] LABS: TOTAL CELLS COUNTED 100
[2018-07-19 06:44] LABS: ANISOCYTOSIS 1+; PLATELET ESTIMATE DECREASED
[2018-07-19 06:47] LABS: ALANINE AMINOTRANSFERASE 46 U/L (12-78); ALBUMIN 2.3 G/DL (3.4-5.0); ALBUMIN/GLOBULIN RATIO 0.6 (1.1-1.5); ALKALINE PHOSPHATASE 126 IU/L (46-116); ANION GAP 12 (8-16); ASPARTATE AMINO TRANSFERASE 35 U/L (10-37); BILIRUBIN,TOTAL 0.4 MG/DL (0.1-1.0); BLOOD UREA NITROGEN 58 MG/DL (7-18); BUN/CREATININE RATIO 25.9 (5.4-32.0); CALCIUM 8.9 MG/DL (8.5-10.1); CHLORIDE 108 MMOL/L (99-107); CREATININE 2.24 MG/DL (0.60-1.10); GLUCOSE 68 MG/DL (70-104); MAGNESIUM 1.6 MG/DL (1.5-2.4); POTASSIUM 3.4 MMOL/L (3.5-5.1); SODIUM 140 MMOL/L (135-145); TOTAL CARBON DIOXIDE 20.5 MMOL/L (24-32); TOTAL PROTEIN 6.2 G/DL (6.4-8.2); eGFR 29 ML/MIN
[2018-07-19] MEDS: cloNIDine 0.1 mg tablet PO SCH (09:17)
[2018-07-19] MEDS: pantoprazole 40mg Tablet.DR PO SCH (09:17)
[2018-07-19] MEDS: amLODIPine 5mg tablet PO SCH (09:18)
[2018-07-19] MEDS: calcium carbonate 500mg tablet PO SCH (09:18)
[2018-07-19] MEDS: multivitamins, therapeutics tablet PO SCH (09:18)
[2018-07-19] MEDS: citalopram 20mg tablet PO SCH (09:18)
[2018-07-19] MEDS: lactobacillus rhamnosus 10,000 MMU CELLS/CAPSULE PO SCH (09:18)
[2018-07-19] MEDS: buPROPion SR 100mg tab PO SCH (09:19)
[2018-07-19] MEDS: gabapentin 300mg capsule PO SCH (09:19)
[2018-07-19] MEDS: CefTRIAXone 2gm/D5W 50ml 50 ML IV SCH ×2 (09:28→13:10)
[2018-07-19 11:00] VITALS: BP 103/61
--- NOTE | 2018-07-19 11:30 | NUR ---
Extended piv inserted to the left upper arm cephalic vein x 1 xttempt using ultrasound. Chana well Addendum: 07/19/18 at 1805 by Caitlyn Rodriguez RN Amended: Links added.
--- NOTE | 2018-07-19 15:13 | NUR ---
Pt Dcd, medications retrieved from pharmacy and given back to patient. Tele box off. IV intact, asymptomatic. report called to Mckenna Watson RN at [facility]
== END 2018-07-19 15:56 | DRG 853 ==
LOC: ER 18:19 → ED HOLD 22:47 → ICU 2S 23:00 → CMPBEDREQ 07-14 01:39 → PCU 3S 07-17 15:53
PROVIDERS: ADMIT Internal Medicine Critical Care Medicine; ATTEND Internal Medicine Critical Care Medicine
PROC: BW251ZZ Computerized Tomography (CT Scan) of Chest, Abdomen and Pelvis using Low Osmolar Contrast (ICD-10-PCS; 2018-07-13)
PROC: 06HM33Z Insertion of Infusion Device into Right Femoral Vein, Percutaneous Approach (ICD-10-PCS; 2018-07-13)
PROC: CT131ZZ Planar Nuclear Medicine Imaging of Kidneys, Ureters and Bladder using Technetium 99m (Tc-99m) (ICD-10-PCS; 2018-07-15)
PROC: 0T778DZ Dilation of Left Ureter with Intraluminal Device, Via Natural or Artificial Opening Endoscopic (ICD-10-PCS; 2018-07-16)
PROC: 0TC78ZZ Extirpation of Matter from Left Ureter, Via Natural or Artificial Opening Endoscopic (ICD-10-PCS; principal; 2018-07-16 20:52)
DX: A41.9 Sepsis, unspecified organism (principal); R65.21 Severe sepsis with septic shock; N17.9 Acute kidney failure, unspecified; N39.0 Urinary tract infection, site not specified; N20.1 Calculus of ureter; I69.351 Hemiplegia and hemiparesis following cerebral infarction affecting right dominant side; I12.9 Hypertensive chronic kidney disease with stage 1 through stage 4 chronic kidney disease, or unspecified chronic kidney disease; N18.9 Chronic kidney disease, unspecified; K76.0 Fatty (change of) liver, not elsewhere classified; R32 Unspecified urinary incontinence; B96.1 Klebsiella pneumoniae [K. pneumoniae] as the cause of diseases classified elsewhere; E78.00 Pure hypercholesterolemia, unspecified; E86.0 Dehydration; F41.9 Anxiety disorder, unspecified; G47.30 Sleep apnea, unspecified; H91.90 Unspecified hearing loss, unspecified ear; I25.10 Atherosclerotic heart disease of native coronary artery without angina pectoris; I25.2 Old myocardial infarction; Z79.82 Long term (current) use of aspirin; Z79.899 Other long term (current) drug therapy; Z88.2 Allergy status to sulfonamides; Z88.8 Allergy status to other drugs, medicaments and biological substances; Z85.038 Personal history of other malignant neoplasm of large intestine; I69.369 Other paralytic syndrome following cerebral infarction affecting unspecified side
CPT/HCPCS: 36415; 71045; 71275; 74174; 76000; 76700; 78708; 80053; 81001; 82948; 83036; 83605; 83735; 83880; 84100; 84132; 84145; 84484; 85025; 85610; 85730; 86885; 86900; 86901; 87040; 87070; 87077; 87088; 87186; 88300; 93005; 93306; 94640; 94760; 96361; 96365; 96367; 97110; 97116; 97162; 97530; 99285; A4402; A7000; A9562; C1769; C2617; G0378; J0692; J0696; J1940; J2060; J2250; J2543; J2704; J2920; J2930; J3010; J3370; J3475; J7030; Q9967

== ENCOUNTER 2019-01-28 13:24 | Inpatient (IN) | payer MEDICARE, OTHER ==
[~2019-01-28] VITALS: Ht 167.6 cm; Wt 76.4 kg
[~2019-01-28 13:24] MED LIST changes: +AMLO5TAB PO; +CLON0.1T PO; +GABA-534 PO; -OFLO5DRO5 EACH EAR; -POTA-82 PO; -QUET300T19 PO
--- NOTE | 2019-01-28 13:43 | NUR ---
automotive exhaust emissions technician at bedside. Patient awake, speaking with automotive exhaust emissions technician, no signs of distress noted, patient states he feels "tired".
[2019-01-28 13:50] LABS: BASOPHILS % (AUTO) 0.2 % (0-1); EOSINOPHILS # (AUTO) 0.1 X10'3 (0-0.9); EOSINOPHILS % (AUTO) 0.6 % (0-6); HEMATOCRIT 36.3 % (42.0-52.0); HEMOGLOBIN 12.1 g/dl (14.0-17.9); LYMPHOCYTES # (AUTO) 1.8 X10'3 (1.1-4.8); LYMPHOCYTES % (AUTO) 17.8 % (21-51); MEAN CORPUSCULAR HEMOGLOBIN 28.8 PG (27.0-31.0); MEAN CORPUSCULAR HGB CONC 33.2 g/dL (33.0-36.5); MEAN CORPUSCULAR VOLUME 86.6 FL (78-98); MEAN PLATELET VOLUME 7.7 FL (7.4-10.4); MONOCYTES # (AUTO) 2.7 X10'3 (0-0.9); MONOCYTES % (AUTO) 25.9 % (2-12); NEUTROPHILS # (AUTO) 5.7 X10'3 (1.8-7.7); NEUTROPHILS % (AUTO) 55.5 % (42-75); PLATELET COUNT 247 X10'3 (140-440); RED BLOOD COUNT 4.19 X10'6 (4.70-6.10); RED CELL DISTRIBUTION WIDTH 17.2 % (11.5-14.5); WHITE BLOOD COUNT 10.3 X10'3 (4.5-11.0)
[2019-01-28] MEDS ORDERED: BUPR100T13 PO (13:52)
[2019-01-28 14:01] LABS: PARTIAL THROMBOPLASTIN TIME 27 SECONDS (22-32)
[2019-01-28] MEDS ORDERED: QUET300T19 PO (14:01)
[2019-01-28 14:03] LABS: ALANINE AMINOTRANSFERASE 35 U/L (12-78); ALBUMIN 3.7 G/DL (3.4-5.0); ALBUMIN/GLOBULIN RATIO 0.7 (1.1-1.5); ALKALINE PHOSPHATASE 149 IU/L (46-116); ANION GAP 15 (8-16); ASPARTATE AMINO TRANSFERASE 37 U/L (10-37); BILIRUBIN,TOTAL 0.5 MG/DL (0.1-1.0); BLOOD UREA NITROGEN 37 MG/DL (7-18); BUN/CREATININE RATIO 11.5 (5.4-32.0); CALCIUM 9.7 MG/DL (8.5-10.1); CHLORIDE 100 MMOL/L (99-107); CREATININE 3.22 MG/DL (0.60-1.10); GLUCOSE 130 MG/DL (70-104); POTASSIUM 3.9 MMOL/L (3.5-5.1); SODIUM 137 MMOL/L (135-145); TOTAL CARBON DIOXIDE 22.3 MMOL/L (24-32); TOTAL PROTEIN 8.7 G/DL (6.4-8.2); eGFR 19 ML/MIN
[2019-01-28] MEDS ORDERED: LORA-269 PO (14:03)
[2019-01-28 14:21] LABS: TOTAL CELLS COUNTED 100
[2019-01-28 14:22] LABS: ANISOCYTOSIS 1+; PLATELET ESTIMATE NORMAL
[2019-01-28] MEDS ORDERED: normal saline 1000ML IV soln IVB ONE ×3 (14:35→16:25)
--- NOTE | 2019-01-28 16:23 | NUR ---
Notified MD Ohlfs of unsuccessful straight cath attempt with bloody discharge. MD ordered to wait until inpatient to attempt again.
[2019-01-28] MEDS ORDERED: magnesium hydroxide 30ml (MOM) UD suspension PO PRN (17:40)
[2019-01-28] MEDS ORDERED: magnesium 2GM in 50ml NS 50 ML IV PRN (17:40)
[2019-01-28] MEDS ORDERED: bisacodyl 10mg suppository rectal RC PRN (17:40)
[2019-01-28] MEDS ORDERED: potassium Cl 20 mEq SR tablet PO PRN ×2 (17:40)
[2019-01-28] MEDS ORDERED: ondansetron/PF 4mg/2ml inj IV PRN (17:40)
[2019-01-28] MEDS ORDERED: magnesium 4gm in 100ml NS 100 ML IV PRN (17:40)
[2019-01-28] MEDS ORDERED: mag hydrox/Alum hydrox/simeth 30ml oral suspension PO PRN (17:40)
[2019-01-28] MEDS ORDERED: diphenhydrAMINE 25mg capsule PO PRN (17:40)
[2019-01-28] MEDS ORDERED: potassium CL 10mEq/100ml bag 100 ML IV PRN ×2 (17:40)
[2019-01-28] MEDS ORDERED: magnesium Cl slow-release 64mg tablet PO PRN (17:40)
[2019-01-28] MEDS ORDERED: acetaminophen 650mg rectal suppository RC PRN (17:40)
[2019-01-28] MEDS: K and/or MAG REPLACEMENT MC SCH (17:40)
[2019-01-28] MEDS ORDERED: acetaminophen 325mg tablet PO PRN (17:40)
[2019-01-28] MEDS ORDERED: normal saline 1000ml 1,000 ML IV ONE (18:20)
--- NOTE | 2019-01-28 18:50 | NUR ---
Patient back from CT at this time.
[2019-01-28] MEDS: CefTRIAXone/D5W-Rocephin 1gm 50 ML IV SCH (18:51)
--- NOTE | 2019-01-28 18:51 | NUR ---
ROCEPHIN IVPB GIVEN AT THIS TIME PER DR MEDEIROS ORDER (SEE EMAR).
[2019-01-28] MEDS ORDERED: LIDOcaine 2% 10ml TOPICAL JELLY (Urojet) MM ONE (19:00)
[2019-01-28] MEDS: normal saline 1000ml 1,000 ML IV SCH (19:23)
[2019-01-28 19:48] LABS: CLARITY,URINE CLOUDY (Clear); COLOR,URINE YELLOW (Yellow); GLUCOSE, URINE NEGATIVE (Neg); KETONES,URINE NEGATIVE (Neg); LEUKOCYTE ESTERASE ,URINE LARGE (Neg); NITRITES, URINE NEGATIVE (Neg); OCCULT BLOOD,URINE LARGE (Neg); PROTEIN,URINE 100 mg/dl (Neg); UROBILINOGEN,URINE 0.2 E.U/dL (0.2-1.0)
[2019-01-28 20:02] LABS: BACTERIA,URINE 1+ /HPF (Neg); RBC,URINE 20-50 /HPF (0-2); SQUAMOUS EPITHELIAL CELL,UR FEW /LPF (FEW); WBC,URINE 30-50 /HPF (0-4)
[2019-01-28 20:03] LABS: TOTAL PROTEIN,URINE RANDOM 123.2 MG/DL; TRANSITIONAL EPI CELLS,URINE FEW /HPF; WBC CLUMPS,URINE MODERATE /HPF (NEGATIVE)
[2019-01-28 20:04] LABS: URINE AMPHETAMINE SCREEN NEGATIVE (Neg); URINE BARBITUATE SCREEN NEGATIVE (Neg); URINE BENZODIAZEPINES SCREEN NEGATIVE (Neg); URINE CANNABINOID SCREEN NEGATIVE (Neg); URINE COCAINE SCREEN NEGATIVE (Neg); URINE METHADONE SCREEN NEGATIVE (Neg); URINE OPIATE SCREEN NEGATIVE (Neg); URINE PHENCYCLIDINE SCREEN NEGATIVE (Neg)
[2019-01-28 20:10] LABS: UA COLLECTION TYPE FOLEY CATH
[2019-01-28 20:20] LABS: HEMOGLOBIN A1C 6.3 % (4.5-6.2)
[2019-01-28 20:25] LABS: TROPONIN I 0.24 NG/ML (0.0-0.05)
[2019-01-28 20:27] LABS: YEAST FEW /HPF (NEGATIVE)
[2019-01-28 20:28] LABS: UA EOSINOPHILS NO EOS /HPF
[2019-01-28] MEDS: buPROPion SR 100mg tab PO SCH (20:58)
[2019-01-28] MEDS: quetiapine 100mg tablet PO SCH (20:58)
[2019-01-28] MEDS: gabapentin 400mg capsule PO SCH (20:58)
[2019-01-28] MEDS: heparin, porcine 5000 units/ml vial SQ SCH (21:01)
--- NOTE | 2019-01-28 23:00 | NUR ---
Received report from ER nurse Leana COTE. Will assume patient care.
[2019-01-29] VITALS (9 sets, daily range): BP systolic 99–180; BP diastolic 51–100
[2019-01-29] MEDS: normal saline 1000ml 1,000 ML IV SCH ×3 (01:38→18:08)
[2019-01-29 01:51] LABS: HEMATOCRIT 30.8 % (42.0-52.0); HEMOGLOBIN 10.4 g/dl (14.0-17.9); MEAN CORPUSCULAR HEMOGLOBIN 29.1 PG (27.0-31.0); MEAN CORPUSCULAR HGB CONC 33.9 g/dL (33.0-36.5); MEAN CORPUSCULAR VOLUME 85.9 FL (78-98); MEAN PLATELET VOLUME 7.7 FL (7.4-10.4); PLATELET COUNT 209 X10'3 (140-440); RED BLOOD COUNT 3.58 X10'6 (4.70-6.10); RED CELL DISTRIBUTION WIDTH 16.8 % (11.5-14.5); WHITE BLOOD COUNT 7.2 X10'3 (4.5-11.0)
[2019-01-29 02:04] LABS: ALANINE AMINOTRANSFERASE 28 U/L (12-78); ALBUMIN 3.1 G/DL (3.4-5.0); ALBUMIN/GLOBULIN RATIO 0.7 (1.1-1.5); ALKALINE PHOSPHATASE 130 IU/L (46-116); ANION GAP 13 (8-16); ASPARTATE AMINO TRANSFERASE 30 U/L (10-37); BILIRUBIN,TOTAL 0.4 MG/DL (0.1-1.0); BLOOD UREA NITROGEN 36 MG/DL (7-18); BUN/CREATININE RATIO 11.9 (5.4-32.0); CALCIUM 8.1 MG/DL (8.5-10.1); CHLORIDE 107 MMOL/L (99-107); CREATININE 3.03 MG/DL (0.60-1.10); GLUCOSE 121 MG/DL (70-104); POTASSIUM 3.9 MMOL/L (3.5-5.1); SODIUM 140 MMOL/L (135-145); TOTAL CARBON DIOXIDE 19.6 MMOL/L (24-32); TOTAL PROTEIN 7.5 G/DL (6.4-8.2); eGFR 20 ML/MIN
[2019-01-29 02:06] LABS: CHOL/HDL RATIO 3.5 (0.00-4.99); CHOLESTEROL 124 MG/DL (0-200); HDL CHOLESTEROL 35 MG/DL (35-60); LDL CHOLESTEROL 72 MG/DL (50-100); MAGNESIUM 1.6 MG/DL (1.5-2.4); PHOSPHORUS 4.3 MG/DL (2.3-4.5); TRIGLYCERIDES 210 MG/DL (20-135); TROPONIN I 0.16 NG/ML (0.0-0.05)
[2019-01-29 02:13] LABS: TOTAL CELLS COUNTED 100
[2019-01-29 02:14] LABS: ANISOCYTOSIS 1+; PLATELET ESTIMATE NORMAL
--- NOTE | 2019-01-29 06:15 | NUR ---
Patient in room PCU 3018. I have received report from KERA Thompson and had the opportunity to ask questions and assume patient care.
[2019-01-29] MEDS: K and/or MAG REPLACEMENT MC SCH (08:00)
[2019-01-29] MEDS: atorvastatin 10mg tablet PO SCH (09:24)
[2019-01-29] MEDS: buPROPion SR 100mg tab PO SCH ×2 (09:24→20:30)
[2019-01-29] MEDS: pantoprazole 40 MG vial IV SCH (09:24)
[2019-01-29] MEDS: ESCITALOPRAM OXALATE 5 MG TABLET PO SCH (09:25)
[2019-01-29] MEDS: CefTRIAXone/D5W-Rocephin 1gm 50 ML IV SCH (09:31)
[2019-01-29] MEDS: acetaminophen 325mg tablet PO PRN ×2 (10:03→20:32)
[2019-01-29] MEDS: heparin, porcine 5000 units/ml vial SQ SCH ×2 (10:04→20:34)
--- NOTE | 2019-01-29 18:00 | NUR ---
Problems reprioritized. Patient report given, questions answered & plan of care reviewed with KERA Lee.
--- NOTE | 2019-01-29 18:30 | NUR ---
Patient in room PCU 3018. I have received report from KERA Rodríguez and had the opportunity to ask questions and assume patient care.
[2019-01-29] MEDS ORDERED: amLODIPine 5mg tablet PO SCH (20:00)
--- NOTE | 2019-01-29 20:18 | NUR ---
Problems reprioritized. Patient report given, questions answered & plan of care reviewed with KERA Tinoco.
--- NOTE | 2019-01-29 20:19 | NUR ---
Informed Dr. Villafana of pt BP of 180/91 L arm, manual bp 175/100. He ordered to restart patient's Amlodipine 5 mg tab PO daily.
[2019-01-29] MEDS: quetiapine 100mg tablet PO SCH (20:29)
[2019-01-29] MEDS: gabapentin 400mg capsule PO SCH (20:29)
[2019-01-29] MEDS: lactobacillus rhamnosus 10,000 MMU CELLS/CAPSULE PO SCH (20:29)
--- NOTE | 2019-01-29 20:30 | NUR ---
Patient in room PCU 3018B. I have received report from KERA Lee and had the opportunity to ask questions and assume patient care. Patient denies CP, dizziness, n/v, and rated headache pain 3/10. Patient BP is high and Dr. Villafana okayed heart medication
[2019-01-29] MEDS ORDERED: cloNIDine 0.1 mg tablet PO ONE (21:30)
[2019-01-29] MEDS ORDERED: nitroGLYCERIN 0.4mg SUBLingual tab SL PRN (21:45)
[2019-01-29] MEDS ORDERED: metoprolol tartrate 1mg/ml inj IV PRN (21:45)
[2019-01-29] MEDS ORDERED: aminophylline 250mg/10ml inj. IV PRN (21:45)
[2019-01-29] MEDS ORDERED: regadenoson 0.4mg/5ml syringe IV PRN (21:45)
[2019-01-30] MEDS: normal saline 1000ml 1,000 ML IV SCH ×3 (01:38→15:43)
--- NOTE | 2019-01-30 02:00 | NUR ---
Patient refused 0200 Vitals
--- NOTE | 2019-01-30 02:30 | NUR ---
Called Dr. Villafana to inform him of blood culture results of left arm: GRAM POSITIVE COCCI IN CLUSTERS POSITIVE BOTTLE(S): SEEN IN AEROBIC BOTTLE HOURS TO DETECT: 30.[address] Villafana that patient is receiving antibiotics; Rob at 08:00.Per Dr. Villafana continue with antibiotics Addendum: 01/30/19 at 0421 by Earnest Devine RN Pt is afebrile
[2019-01-30 05:29] LABS: BASOPHILS % (AUTO) 0.2 % (0-1); HEMOGLOBIN 9.1 g/dl (14.0-17.9); LYMPHOCYTES # (AUTO) 0.9 X10'3 (1.1-4.8); MONOCYTES # (AUTO) 1.4 X10'3 (0-0.9); NEUTROPHILS # (AUTO) 2.4 X10'3 (1.8-7.7); RED BLOOD COUNT 3.11 X10'6 (4.70-6.10)
[2019-01-30 05:32] LABS: EOSINOPHILS % (AUTO) 0.8 % (0-6); LYMPHOCYTES % (AUTO) 18.3 % (21-51); MEAN CORPUSCULAR HEMOGLOBIN 29.3 PG (27.0-31.0); MEAN CORPUSCULAR HGB CONC 33.8 g/dL (33.0-36.5); MEAN CORPUSCULAR VOLUME 86.8 FL (78-98); MONOCYTES % (AUTO) 29.8 % (2-12); NEUTROPHILS % (AUTO) 50.9 % (42-75); PLATELET COUNT 164 X10'3 (140-440); RED CELL DISTRIBUTION WIDTH 17.1 % (11.5-14.5); WHITE BLOOD COUNT 4.7 X10'3 (4.5-11.0)
[2019-01-30 05:49] LABS: ALANINE AMINOTRANSFERASE 18 U/L (12-78); ALBUMIN 2.8 G/DL (3.4-5.0); ALBUMIN/GLOBULIN RATIO 0.7 (1.1-1.5); ALKALINE PHOSPHATASE 111 IU/L (46-116); ANION GAP 11 (8-16); ASPARTATE AMINO TRANSFERASE 18 U/L (10-37); BILIRUBIN,TOTAL 0.3 MG/DL (0.1-1.0); BLOOD UREA NITROGEN 33 MG/DL (7-18); BUN/CREATININE RATIO 12.7 (5.4-32.0); CALCIUM 8.5 MG/DL (8.5-10.1); CHLORIDE 110 MMOL/L (99-107); GLUCOSE 93 MG/DL (70-104); MAGNESIUM 1.6 MG/DL (1.5-2.4); PHOSPHORUS 3.7 MG/DL (2.3-4.5); POTASSIUM 4.1 MMOL/L (3.5-5.1); SODIUM 141 MMOL/L (135-145); TOTAL CARBON DIOXIDE 20.3 MMOL/L (24-32); eGFR 24 ML/MIN
[2019-01-30 06:00] VITALS: BP 149/73
[2019-01-30 06:23] LABS: ANISOCYTOSIS 1+; PLATELET ESTIMATE NORMAL; TOTAL CELLS COUNTED 100
--- NOTE | 2019-01-30 06:31 | NUR ---
Problems reprioritized. Patient report given, questions answered & plan of care reviewed with KERA Howard. Pt stable at shift change
--- NOTE | 2019-01-30 06:36 | NUR ---
Patient in room PCU 3018. I have received report from KERA Tinoco and had the opportunity to ask questions and assume patient care. Patient currently sleeping in bed, bed locked and low, call light in reach, no acute distress, will continue to monitor.
--- NOTE | 2019-01-30 07:27 | NUR ---
PAGER ID: [phone] MESSAGE: KERA Howard, ext [phone], [phone], keli Fishman called and asked why patient is getting a susu when he had a normal one in April. Also, if you do want to proceed, he will not be able to get it until afternoon because camera is down.
[2019-01-30] MEDS ORDERED: amLODIPine 5mg tablet PO SCH ×2 (08:00)
[2019-01-30] MEDS ORDERED: cloNIDine 0.1 mg tablet PO SCH (08:00)
[2019-01-30] MEDS: K and/or MAG REPLACEMENT MC SCH (08:00)
[2019-01-30] MEDS: pantoprazole 40 MG vial IV SCH (08:09)
[2019-01-30] MEDS: CefTRIAXone/D5W-Rocephin 1gm 50 ML IV SCH (08:10)
[2019-01-30] MEDS: heparin, porcine 5000 units/ml vial SQ SCH ×2 (08:10→20:17)
[2019-01-30] MEDS: atorvastatin 10mg tablet PO SCH (08:12)
[2019-01-30] MEDS: lactobacillus rhamnosus 10,000 MMU CELLS/CAPSULE PO SCH ×2 (08:12→20:15)
[2019-01-30] MEDS: ESCITALOPRAM OXALATE 5 MG TABLET PO SCH (08:12)
[2019-01-30] MEDS: buPROPion SR 100mg tab PO SCH ×2 (08:13→20:15)
[2019-01-30] MEDS: amLODIPine 5mg tablet PO SCH (08:13)
[2019-01-30 11:00] VITALS: BP 152/79
[2019-01-30] MEDS: vancomycin/NS 1 GM ADD-VANTAGE 250 ML IV SCH (11:25)
[2019-01-30] MEDS ORDERED: vancomycin/NS 1 GM ADD-VANTAGE 250 ML IV SCH ×2 (11:30→20:00)
--- NOTE | 2019-01-30 14:59 | NUR ---
PAGER ID: [phone] MESSAGE: KERA Howard, ext [phone], [phone], Morris, spoke with [facility], camera will not be fixed until tomorrow afternoon, they said they will likely be unable to do his stress test tomorrow either.
[2019-01-30 15:00] VITALS: BP 146/78
[2019-01-30 18:00] VITALS: BP 133/66
--- NOTE | 2019-01-30 18:07 | NUR ---
Problems reprioritized. Patient report given, questions answered & plan of care reviewed with KERA Felder.
--- NOTE | 2019-01-30 18:08 | NUR ---
Orientee documentation: I have reviewed and agree with all interventions, assessments performed and documented by KERA Sosa.
[2019-01-30] MEDS: gabapentin 400mg capsule PO SCH (20:15)
[2019-01-30] MEDS: acetaminophen 325mg tablet PO PRN (20:16)
[2019-01-30] MEDS: quetiapine 100mg tablet PO SCH (20:17)
[2019-01-30 22:00] VITALS: BP 121/59
[2019-01-31 02:00] VITALS: BP 107/57
[2019-01-31] MEDS: normal saline 1000ml 1,000 ML IV SCH ×2 (03:15→15:55)
[2019-01-31] MEDS: acetaminophen 325mg tablet PO PRN ×3 (04:26→20:53)
[2019-01-31 04:46] LABS: BASOPHILS % (AUTO) 0.2 % (0-1); EOSINOPHILS # (AUTO) 0.1 X10'3 (0-0.9); EOSINOPHILS % (AUTO) 1.2 % (0-6); HEMATOCRIT 28.4 % (42.0-52.0); HEMOGLOBIN 9.6 g/dl (14.0-17.9); LYMPHOCYTES # (AUTO) 1.3 X10'3 (1.1-4.8); LYMPHOCYTES % (AUTO) 22.9 % (21-51); MEAN CORPUSCULAR HEMOGLOBIN 29.1 PG (27.0-31.0); MEAN CORPUSCULAR HGB CONC 33.7 g/dL (33.0-36.5); MEAN CORPUSCULAR VOLUME 86.5 FL (78-98); MEAN PLATELET VOLUME 8.2 FL (7.4-10.4); MONOCYTES # (AUTO) 1.8 X10'3 (0-0.9); MONOCYTES % (AUTO) 31.1 % (2-12); NEUTROPHILS # (AUTO) 2.5 X10'3 (1.8-7.7); NEUTROPHILS % (AUTO) 44.6 % (42-75); PLATELET COUNT 185 X10'3 (140-440); RED BLOOD COUNT 3.29 X10'6 (4.70-6.10); RED CELL DISTRIBUTION WIDTH 17.8 % (11.5-14.5); WHITE BLOOD COUNT 5.6 X10'3 (4.5-11.0)
[2019-01-31 05:12] LABS: ALANINE AMINOTRANSFERASE 17 U/L (12-78); ALBUMIN/GLOBULIN RATIO 0.7 (1.1-1.5); ALKALINE PHOSPHATASE 120 IU/L (46-116); ANION GAP 11 (8-16); ASPARTATE AMINO TRANSFERASE 13 U/L (10-37); BILIRUBIN,TOTAL 0.2 MG/DL (0.1-1.0); BLOOD UREA NITROGEN 24 MG/DL (7-18); BUN/CREATININE RATIO 10.4 (5.4-32.0); CHLORIDE 108 MMOL/L (99-107); CREATININE 2.31 MG/DL (0.60-1.10); GLUCOSE 83 MG/DL (70-104); MAGNESIUM 1.5 MG/DL (1.5-2.4); PHOSPHORUS 4.2 MG/DL (2.3-4.5); POTASSIUM 3.9 MMOL/L (3.5-5.1); SODIUM 141 MMOL/L (135-145); TOTAL CARBON DIOXIDE 21.8 MMOL/L (24-32); TOTAL PROTEIN 7.6 G/DL (6.4-8.2); eGFR 28 ML/MIN
[2019-01-31 06:00] VITALS: BP 102/61
--- NOTE | 2019-01-31 06:00 | NUR ---
Orientee documentation: I have reviewed all interventions, assessments performed and documented by Nichole COTE. Orientee Medication Administration: For this medication-pass time frame, all medication were reviewed, dispensed, administered and documented per hospital policy by Nichole COTE.
[2019-01-31 06:10] LABS: ANISOCYTOSIS 1+; PLATELET ESTIMATE NORMAL; TOTAL CELLS COUNTED 100
--- NOTE | 2019-01-31 06:20 | NUR ---
Problems reprioritized. Patient report given, questions answered & plan of care reviewed with KERA Bellamy.
--- NOTE | 2019-01-31 06:41 | NUR ---
Patient in room PCU 3018. I have received report from Emerita COTE and had the opportunity to ask questions and assume patient care.
--- NOTE | 2019-01-31 07:19 | NUR ---
PAGER ID: [phone] MESSAGE: [phone] Edi Fishman: Pt is positive for MRSA in urine, pt has a gutierrez catheter in place and will be moved to an isolation room. Thanks Judi [phone]
--- NOTE | 2019-01-31 07:20 | NUR ---
pt is transferred from [place] [id number] [id number] d/t positive for MRSA in urine.
[2019-01-31] MEDS: ESCITALOPRAM OXALATE 5 MG TABLET PO SCH (07:46)
[2019-01-31] MEDS: buPROPion SR 100mg tab PO SCH ×2 (07:47→20:52)
[2019-01-31] MEDS: amLODIPine 5mg tablet PO SCH (07:47)
[2019-01-31] MEDS: lactobacillus rhamnosus 10,000 MMU CELLS/CAPSULE PO SCH ×2 (07:47→20:52)
[2019-01-31] MEDS: pantoprazole 40mg Tablet.DR PO SCH (07:47)
[2019-01-31] MEDS: CefTRIAXone/D5W-Rocephin 1gm 50 ML IV SCH (07:48)
[2019-01-31] MEDS: heparin, porcine 5000 units/ml vial SQ SCH ×2 (07:48→20:54)
[2019-01-31] MEDS: atorvastatin 10mg tablet PO SCH (07:48)
[2019-01-31] MEDS: K and/or MAG REPLACEMENT MC SCH (08:00)
[2019-01-31 11:00] VITALS: BP 116/77
[2019-01-31] MEDS: vancomycin/NS 1 GM ADD-VANTAGE 250 ML IV SCH (11:31)
--- NOTE | 2019-01-31 12:39 | NUR ---
Removed f/c per dr chanel's orders, no complications noted, placed condom catheter in place d/t pt incontinent and weakness d/t stroke.
[2019-01-31 15:00] VITALS: BP 136/87
[2019-01-31 18:00] VITALS: BP 136/70
--- NOTE | 2019-01-31 18:06 | NUR ---
Problems reprioritized. Patient report given, questions answered & plan of care reviewed with Emerita COTE and Nichole COTE.
--- NOTE | 2019-01-31 18:40 | NUR ---
Patient in room PCU 3019. I have received report from KERA Bellamy and had the opportunity to ask questions and assume patient care.
[2019-01-31] MEDS: quetiapine 100mg tablet PO SCH (20:52)
[2019-01-31] MEDS: gabapentin 400mg capsule PO SCH (20:52)
[2019-01-31 22:00] VITALS: BP 158/86
[2019-01-31] MEDS ORDERED: VANCOMYCIN LEVEL IV NR (23:00)
[2019-02-01] VITALS (13 sets, daily range): BP systolic 103–161; BP diastolic 57–87
[2019-02-01] MEDS: normal saline 1000ml 1,000 ML IV SCH ×3 (01:59→21:22)
--- NOTE | 2019-02-01 06:00 | NUR ---
Patient in room PCU 3019. I have received report from Emerita COTE and had the opportunity to ask questions and assume patient care.
[2019-02-01 06:09] LABS: BASOPHILS % (AUTO) 0.1 % (0-1); EOSINOPHILS # (AUTO) 0.1 X10'3 (0-0.9); EOSINOPHILS % (AUTO) 1.4 % (0-6); HEMATOCRIT 29.3 % (42.0-52.0); LYMPHOCYTES # (AUTO) 1.3 X10'3 (1.1-4.8); LYMPHOCYTES % (AUTO) 20.2 % (21-51); MEAN CORPUSCULAR HEMOGLOBIN 29.3 PG (27.0-31.0); MEAN CORPUSCULAR HGB CONC 33.9 g/dL (33.0-36.5); MEAN CORPUSCULAR VOLUME 86.4 FL (78-98); MEAN PLATELET VOLUME 8.2 FL (7.4-10.4); MONOCYTES # (AUTO) 1.7 X10'3 (0-0.9); MONOCYTES % (AUTO) 25.2 % (2-12); NEUTROPHILS # (AUTO) 3.5 X10'3 (1.8-7.7); NEUTROPHILS % (AUTO) 53.1 % (42-75); PLATELET COUNT 190 X10'3 (140-440); RED BLOOD COUNT 3.39 X10'6 (4.70-6.10); RED CELL DISTRIBUTION WIDTH 17.2 % (11.5-14.5); WHITE BLOOD COUNT 6.7 X10'3 (4.5-11.0)
--- NOTE | 2019-02-01 06:30 | NUR ---
Problems reprioritized. Patient report given, questions answered & plan of care reviewed with Elaine COTE.
[2019-02-01 06:37] LABS: TOTAL CELLS COUNTED 100
[2019-02-01 06:39] LABS: ANISOCYTOSIS 1+; PLATELET ESTIMATE NORMAL
[2019-02-01 06:55] LABS: ALANINE AMINOTRANSFERASE 19 U/L (12-78); ALBUMIN 3.1 G/DL (3.4-5.0); ALBUMIN/GLOBULIN RATIO 0.7 (1.1-1.5); ALKALINE PHOSPHATASE 121 IU/L (46-116); ANION GAP 14 (8-16); ASPARTATE AMINO TRANSFERASE 18 U/L (10-37); BILIRUBIN,TOTAL 0.3 MG/DL (0.1-1.0); BLOOD UREA NITROGEN 24 MG/DL (7-18); BUN/CREATININE RATIO 11.3 (5.4-32.0); CALCIUM 9.2 MG/DL (8.5-10.1); CHLORIDE 107 MMOL/L (99-107); CREATININE 2.13 MG/DL (0.60-1.10); GLUCOSE 85 MG/DL (70-104); MAGNESIUM 1.4 MG/DL (1.5-2.4); POTASSIUM 3.9 MMOL/L (3.5-5.1); SODIUM 142 MMOL/L (135-145); TOTAL CARBON DIOXIDE 21.5 MMOL/L (24-32); TOTAL PROTEIN 7.8 G/DL (6.4-8.2); eGFR 31 ML/MIN
[2019-02-01] MEDS: CefTRIAXone/D5W-Rocephin 1gm 50 ML IV SCH (07:44)
[2019-02-01] MEDS: pantoprazole 40mg Tablet.DR PO SCH (07:45)
[2019-02-01] MEDS: buPROPion SR 100mg tab PO SCH ×2 (07:45→20:43)
[2019-02-01] MEDS: lactobacillus rhamnosus 10,000 MMU CELLS/CAPSULE PO SCH ×2 (07:46→20:43)
[2019-02-01] MEDS: atorvastatin 10mg tablet PO SCH (07:46)
[2019-02-01] MEDS: ESCITALOPRAM OXALATE 5 MG TABLET PO SCH (07:46)
[2019-02-01] MEDS: heparin, porcine 5000 units/ml vial SQ SCH ×2 (07:47→20:45)
[2019-02-01] MEDS: amLODIPine 5mg tablet PO SCH ×2 (08:00→15:39)
[2019-02-01] MEDS: K and/or MAG REPLACEMENT MC SCH (08:00)
[2019-02-01] MEDS ORDERED: aminophylline inj. 10 ML IV ONE (09:08)
[2019-02-01] MEDS: vancomycin/NS 1 GM ADD-VANTAGE 250 ML IV SCH (12:00)
[2019-02-01] MEDS ORDERED: magnesium Cl slow-release 64mg tablet PO PRN (17:40)
[2019-02-01] MEDS ORDERED: potassium Cl 20 mEq SR tablet PO PRN ×2 (17:40)
[2019-02-01] MEDS ORDERED: magnesium 4gm in 100ml NS 100 ML IV PRN (17:40)
[2019-02-01] MEDS ORDERED: potassium CL 10mEq/100ml bag 100 ML IV PRN (17:40)
--- NOTE | 2019-02-01 18:00 | NUR ---
Patient in room PCU 3019. I have received report from Elaine COTE and had the opportunity to ask questions and assume patient care.
--- NOTE | 2019-02-01 18:27 | NUR ---
Problems reprioritized. Patient report given, questions answered & plan of care reviewed with Justin COTE.
[2019-02-01] MEDS: gabapentin 400mg capsule PO SCH (20:43)
[2019-02-01] MEDS: quetiapine 100mg tablet PO SCH (20:43)
[2019-02-02 02:00] VITALS: BP 124/79
[2019-02-02 06:00] LABS: BASOPHILS % (AUTO) 0.3 % (0-1); EOSINOPHILS # (AUTO) 0.1 X10'3 (0-0.9); EOSINOPHILS % (AUTO) 1.4 % (0-6); HEMATOCRIT 29.8 % (42.0-52.0); LYMPHOCYTES # (AUTO) 1.2 X10'3 (1.1-4.8); LYMPHOCYTES % (AUTO) 20.9 % (21-51); MEAN CORPUSCULAR HEMOGLOBIN 29.2 PG (27.0-31.0); MEAN CORPUSCULAR HGB CONC 33.6 g/dL (33.0-36.5); MEAN CORPUSCULAR VOLUME 86.8 FL (78-98); MEAN PLATELET VOLUME 8.1 FL (7.4-10.4); MONOCYTES # (AUTO) 1.5 X10'3 (0-0.9); MONOCYTES % (AUTO) 24.9 % (2-12); NEUTROPHILS # (AUTO) 3.1 X10'3 (1.8-7.7); NEUTROPHILS % (AUTO) 52.5 % (42-75); PLATELET COUNT 216 X10'3 (140-440); RED BLOOD COUNT 3.43 X10'6 (4.70-6.10); RED CELL DISTRIBUTION WIDTH 17.1 % (11.5-14.5); WHITE BLOOD COUNT 5.8 X10'3 (4.5-11.0)
--- NOTE | 2019-02-02 06:14 | NUR ---
Problems reprioritized. Patient report given, questions answered & plan of care reviewed with Anaid COTE.
--- NOTE | 2019-02-02 06:18 | NUR ---
Patient in room PCU 3019. I have received report from KERA Anderson and had the opportunity to ask questions and assume patient care.
[2019-02-02 06:45] LABS: ALANINE AMINOTRANSFERASE 15 U/L (12-78); ALBUMIN/GLOBULIN RATIO 0.7 (1.1-1.5); ALKALINE PHOSPHATASE 126 IU/L (46-116); ANION GAP 14 (8-16); ASPARTATE AMINO TRANSFERASE 15 U/L (10-37); BILIRUBIN,TOTAL 0.3 MG/DL (0.1-1.0); BLOOD UREA NITROGEN 23 MG/DL (7-18); CALCIUM 9.1 MG/DL (8.5-10.1); CHLORIDE 109 MMOL/L (99-107); CREATININE 1.92 MG/DL (0.60-1.10); GLUCOSE 84 MG/DL (70-104); MAGNESIUM 1.5 MG/DL (1.5-2.4); POTASSIUM 3.8 MMOL/L (3.5-5.1); SODIUM 143 MMOL/L (135-145); TOTAL CARBON DIOXIDE 19.9 MMOL/L (24-32); TOTAL PROTEIN 7.5 G/DL (6.4-8.2); eGFR 35 ML/MIN
[2019-02-02 07:00] VITALS: BP 133/79
[2019-02-02] MEDS: normal saline 1000ml 1,000 ML IV SCH ×2 (07:22→19:38)
[2019-02-02] MEDS: K and/or MAG REPLACEMENT MC SCH (08:00)
[2019-02-02] MEDS: pantoprazole 40mg Tablet.DR PO SCH (09:10)
[2019-02-02] MEDS: CefTRIAXone/D5W-Rocephin 1gm 50 ML IV SCH (09:10)
[2019-02-02] MEDS: atorvastatin 10mg tablet PO SCH (09:10)
[2019-02-02] MEDS: heparin, porcine 5000 units/ml vial SQ SCH ×2 (09:10→20:21)
[2019-02-02] MEDS: buPROPion SR 100mg tab PO SCH ×2 (09:11→20:21)
[2019-02-02] MEDS: ESCITALOPRAM OXALATE 5 MG TABLET PO SCH (09:11)
[2019-02-02] MEDS: lactobacillus rhamnosus 10,000 MMU CELLS/CAPSULE PO SCH ×2 (09:11→20:21)
[2019-02-02 11:00] VITALS: BP 127/87
[2019-02-02] MEDS ORDERED: VANCOMYCIN LEVEL IV ONE (11:30)
[2019-02-02] MEDS ORDERED: VANCOMYCIN LEVEL IV NR (11:30)
[2019-02-02] MEDS: vancomycin/NS 1 GM ADD-VANTAGE 250 ML IV SCH (12:20)
[2019-02-02 15:00] VITALS: BP 140/79
--- NOTE | 2019-02-02 15:04 | NUR ---
Initial: Pt admit w/ UTI and sepsis PO 75-100% avg heart healthy meals meeting needs. LBM 01/31. TG 210 receiving lipitor w/ hyperlipidemia hx. No nutrition concerns at this time. Will continue to monitor. Rec: 1. continue heart healthy diet 2. wt per rx Addendum: 02/02/19 at [address] Amended: Links added.
[2019-02-02 18:00] VITALS: BP 169/83
--- NOTE | 2019-02-02 18:23 | NUR ---
Orientee documentation: I have reviewed and agree with interventions, assessments performed and documented by Lalita COTE. Orientee Medication Administration: For this medication-pass time frame, medication were reviewed, dispensed, administered and documented per hospital policy by Lalita COTE.
--- NOTE | 2019-02-02 18:24 | NUR ---
Problems reprioritized. Patient report given, questions answered & plan of care reviewed with Lenard COTE. Patient stable at transfer of care.
--- NOTE | 2019-02-02 18:25 | NUR ---
Patient in room PCU 3019. I have received report from ZACK Celis and Zack Worrell and had the opportunity to ask questions and assume patient care.
[2019-02-02 20:00] VITALS: BP 129/79
[2019-02-02] MEDS: quetiapine 100mg tablet PO SCH (20:21)
[2019-02-02] MEDS: gabapentin 400mg capsule PO SCH (20:21)
[2019-02-03 02:00] VITALS: BP 122/65
--- NOTE | 2019-02-03 06:13 | NUR ---
Problems reprioritized. Patient report given, questions answered & plan of care reviewed with KERA Worrell.
--- NOTE | 2019-02-03 06:15 | NUR ---
Patient in room PCU 3019. I have received report from Lenard COTE and had the opportunity to ask questions and assume patient care.
[2019-02-03 07:07] VITALS: BP 140/53
[2019-02-03 07:50] LABS: BASOPHILS % (AUTO) 0.3 % (0-1); EOSINOPHILS # (AUTO) 0.1 X10'3 (0-0.9); EOSINOPHILS % (AUTO) 1.7 % (0-6); HEMATOCRIT 29.8 % (42.0-52.0); LYMPHOCYTES # (AUTO) 1.3 X10'3 (1.1-4.8); LYMPHOCYTES % (AUTO) 20.7 % (21-51); MEAN CORPUSCULAR HEMOGLOBIN 29.1 PG (27.0-31.0); MEAN CORPUSCULAR HGB CONC 33.7 g/dL (33.0-36.5); MEAN CORPUSCULAR VOLUME 86.3 FL (78-98); MEAN PLATELET VOLUME 7.5 FL (7.4-10.4); MONOCYTES # (AUTO) 1.3 X10'3 (0-0.9); MONOCYTES % (AUTO) 21.6 % (2-12); NEUTROPHILS # (AUTO) 3.4 X10'3 (1.8-7.7); NEUTROPHILS % (AUTO) 55.7 % (42-75); PLATELET COUNT 210 X10'3 (140-440); RED BLOOD COUNT 3.45 X10'6 (4.70-6.10); RED CELL DISTRIBUTION WIDTH 16.9 % (11.5-14.5); WHITE BLOOD COUNT 6.2 X10'3 (4.5-11.0)
[2019-02-03] MEDS: K and/or MAG REPLACEMENT MC SCH (08:00)
[2019-02-03 08:23] LABS: TOTAL CELLS COUNTED 100
[2019-02-03 08:24] LABS: ANISOCYTOSIS 1+; PLATELET ESTIMATE NORMAL
[2019-02-03] MEDS: buPROPion SR 100mg tab PO SCH ×2 (08:41→21:23)
[2019-02-03] MEDS: atorvastatin 10mg tablet PO SCH (08:41)
[2019-02-03] MEDS: pantoprazole 40mg Tablet.DR PO SCH (08:41)
[2019-02-03] MEDS: amLODIPine 5mg tablet PO SCH (08:41)
[2019-02-03] MEDS: lactobacillus rhamnosus 10,000 MMU CELLS/CAPSULE PO SCH ×2 (08:41→21:23)
[2019-02-03] MEDS: ESCITALOPRAM OXALATE 5 MG TABLET PO SCH (08:41)
[2019-02-03] MEDS: heparin, porcine 5000 units/ml vial SQ SCH ×2 (08:42→21:24)
[2019-02-03] MEDS: normal saline 1000ml 1,000 ML IV SCH ×2 (08:58→21:26)
[2019-02-03 11:00] VITALS: BP 151/80
[2019-02-03 11:15] LABS: ALBUMIN 3.2 G/DL (3.4-5.0); ANION GAP 13 (8-16); BLOOD UREA NITROGEN 19 MG/DL (7-18); BUN/CREATININE RATIO 10.8 (5.4-32.0); CHLORIDE 107 MMOL/L (99-107); CREATININE 1.76 MG/DL (0.60-1.10); GLUCOSE 102 MG/DL (70-104); SODIUM 141 MMOL/L (135-145); TOTAL CARBON DIOXIDE 20.9 MMOL/L (24-32); eGFR 38 ML/MIN
[2019-02-03] MEDS: vancomycin/NS 1 GM ADD-VANTAGE 250 ML IV SCH (11:47)
--- NOTE | 2019-02-03 12:14 | NUR ---
Paged PICC RN per MD orders for new PICC.
--- NOTE | 2019-02-03 12:47 | NUR ---
Rm [phone], Sravanthi. Not sure if my last page went through, Patient has new PICC line order. Thank you
[2019-02-03 15:00] VITALS: BP 147/80
--- NOTE | 2019-02-03 16:35 | NUR ---
promotional table spacer PAGER ID: [phone] MESSAGE: Sravanthi Wayne. FYI: PICC RN will place PICC tomorrow. Anaid [id number]
[2019-02-03 18:00] VITALS: BP 162/87
--- NOTE | 2019-02-03 18:28 | NUR ---
Problems reprioritized. Patient report given, questions answered & plan of care reviewed with Bijal COTE. Patient stable at transfer of care.
--- NOTE | 2019-02-03 18:40 | NUR ---
Patient in room PCU 3019. I have received report from Anaid COTE and had the opportunity to ask questions and assume patient care.
[2019-02-03] MEDS: quetiapine 100mg tablet PO SCH (21:23)
[2019-02-03] MEDS: gabapentin 400mg capsule PO SCH (21:23)
[2019-02-03 22:00] VITALS: BP 144/93
[2019-02-04 02:00] VITALS: BP 94/63
[2019-02-04 06:00] VITALS: BP 128/76
--- NOTE | 2019-02-04 06:26 | NUR ---
Problems reprioritized. Patient report given, questions answered & plan of care reviewed with Mack COTE.
--- NOTE | 2019-02-04 06:31 | NUR ---
Patient in room PCU 3019. I have received report from Bijal COTE and had the opportunity to ask questions and assume patient care.
[2019-02-04 06:54] LABS: ALBUMIN 3.1 G/DL (3.4-5.0); ANION GAP 13 (8-16); BLOOD UREA NITROGEN 21 MG/DL (7-18); BUN/CREATININE RATIO 12.4 (5.4-32.0); CHLORIDE 108 MMOL/L (99-107); GLUCOSE 82 MG/DL (70-104); POTASSIUM 4.1 MMOL/L (3.5-5.1); SODIUM 141 MMOL/L (135-145); TOTAL CARBON DIOXIDE 20.1 MMOL/L (24-32); eGFR 40 ML/MIN
[2019-02-04] MEDS: ESCITALOPRAM OXALATE 5 MG TABLET PO SCH (07:56)
[2019-02-04] MEDS: buPROPion SR 100mg tab PO SCH (07:56)
[2019-02-04] MEDS: atorvastatin 10mg tablet PO SCH (07:56)
[2019-02-04] MEDS: pantoprazole 40mg Tablet.DR PO SCH (07:57)
[2019-02-04] MEDS: lactobacillus rhamnosus 10,000 MMU CELLS/CAPSULE PO SCH (07:57)
[2019-02-04] MEDS: amLODIPine 5mg tablet PO SCH (07:57)
[2019-02-04] MEDS: heparin, porcine 5000 units/ml vial SQ SCH (07:58)
[2019-02-04] MEDS: K and/or MAG REPLACEMENT MC SCH (08:00)
[2019-02-04] MEDS ORDERED: PANT40TA4 PO (09:19)
[2019-02-04] MEDS ORDERED: NOR5T PO (09:19)
[2019-02-04] MEDS ORDERED: LACT1CAP26 PO (09:19)
--- NOTE | 2019-02-04 11:07 | NUR ---
Charge nurse Jerson had notified the PICC nurse about need of PICC line for this patient prior to going home on IV antibiotic. Dr. Gamble notified about the discharge order, she said that she will be coming to the unit to write the prescription for Vancomycin IV
[2019-02-04] MEDS ORDERED: VANC1VIA21 IV (11:44)
[2019-02-04] MEDS: vancomycin/NS 1 GM ADD-VANTAGE 250 ML IV SCH (12:03)
[2019-02-04 15:00] VITALS: BP 145/81
--- NOTE | 2019-02-04 16:35 | NUR ---
Discharged patient home (back to [facility]). Discharge instructions were given to the patient, patient verbalized understanding of all instructions made. Peripheral IV catheter removed, tip intact. Patient were discharged with a newly placed PICC line on his left upper arm. Wendy Cargo transported patient via wheelchair. Belongings sent with patient upon discharge. Home infusion arranged c/o House Father.
== END 2019-02-04 16:30 | disposition home health service (06) | DRG 871 ==
LOC: ER 13:25 → ED HOLD 19:18 → EDBEDREQ 22:52 → PCU 3S 23:26
PROVIDERS: ADMIT Family Medicine; ATTEND Family Medicine
PROC: 4A02XM4 Measurement of Cardiac Total Activity, External Approach (ICD-10-PCS; 2019-02-01)
PROC: 3E073KZ Introduction of Other Diagnostic Substance into Coronary Artery, Percutaneous Approach (ICD-10-PCS; 2019-02-01)
PROC: 02HV33Z Insertion of Infusion Device into Superior Vena Cava, Percutaneous Approach (ICD-10-PCS; principal; 2019-02-04)
DX: A41.02 Sepsis due to Methicillin resistant Staphylococcus aureus (principal); I21.A1 Myocardial infarction type 2; N17.0 Acute kidney failure with tubular necrosis; R65.21 Severe sepsis with septic shock; N39.0 Urinary tract infection, site not specified; I69.351 Hemiplegia and hemiparesis following cerebral infarction affecting right dominant side; E86.0 Dehydration; F41.9 Anxiety disorder, unspecified; N18.9 Chronic kidney disease, unspecified; E78.00 Pure hypercholesterolemia, unspecified; E78.5 Hyperlipidemia, unspecified; F10.10 Alcohol abuse, uncomplicated; F32.9 Major depressive disorder, single episode, unspecified; I12.9 Hypertensive chronic kidney disease with stage 1 through stage 4 chronic kidney disease, or unspecified chronic kidney disease; I25.10 Atherosclerotic heart disease of native coronary artery without angina pectoris; I25.2 Old myocardial infarction; I77.810 Thoracic aortic ectasia; R32 Unspecified urinary incontinence; Z82.49 Family history of ischemic heart disease and other diseases of the circulatory system; Z85.038 Personal history of other malignant neoplasm of large intestine; Z85.46 Personal history of malignant neoplasm of prostate; Z86.79 Personal history of other diseases of the circulatory system; Z87.442 Personal history of urinary calculi; Z87.891 Personal history of nicotine dependence; Z88.1 Allergy status to other antibiotic agents; Z88.2 Allergy status to sulfonamides; Z90.79 Acquired absence of other genital organ(s); Z95.2 Presence of prosthetic heart valve; Z99.3 Dependence on wheelchair; Z79.899 Other long term (current) drug therapy
CPT/HCPCS: 36415; 36569; 70551; 71045; 71250; 74176; 76775; 76937; 78452; 80048; 80053; 80061; 80202; 80305; 81001; 82570; 83036; 83605; 83735; 83880; 83930; 83935; 84100; 84145; 84156; 84300; 84443; 84484; 85025; 85610; 85730; 87040; 87077; 87081; 87088; 87186; 87207; 93005; 93017; 93306; 93880; 96361; 96365; 97161; 97530; 99285; A9500; C9113; G0378; J0280; J0696; J1644; J2785; J3370; J7030

== ENCOUNTER 2019-04-15 14:58 | Emergency (ER) | payer MEDICARE, OTHER ==
[~2019-04-15] VITALS: Ht 167.6 cm; Wt 79.5 kg
[~2019-04-15 14:58] MED LIST changes: -AMLO5TAB PO; -ASPI-1071 PO; -ATI0.5T PO; -CALC-642 PO; -CLON0.1T PO; -ESCI20TA38 PO; +ESCI20TA45 PO; -GABA-532 PO; -ISOS30TA6 PO; +LACT1CAP26 PO; +LORA-269 PO; -MULT-933 PO; +NOR5T PO; +PANT40TA4 PO; +QUET300T19 PO; +SIMV-42 PO; -SIMV20TA5 PO
[2019-04-15] MEDS ORDERED: morphine 2 MG/ML inj. syringe IM ONE (16:00)
--- NOTE | 2019-04-15 16:00 | NUR ---
PATRICIA BLCAK INFORMED OF PT 8/10 PAIN, RECEIVED VERBAL ORDER FOR 2 MG MOPHINE IM ONCE NOW.
--- NOTE | 2019-04-15 16:05 | NUR ---
PT BROUGHT TO XRAY PER ORDERS VIA TRU, WILL MEDICATE PT FOR PAIN UPON RETURN TO [facility]
--- NOTE | 2019-04-15 16:14 | NUR ---
pt requested that i give IM morphine in left deltoid as right shoulder hurts and has bruising to posterior deltoid
--- NOTE | 2019-04-15 17:07 | NUR ---
PT WAS SLEEPING UPON APPROACH TO FARIAS 07, UPDATED PT VS, UPDATED PATRICIA AGAIN ABOUT PT RIGHT SHOULDER PAIN AGAIN, ORDERS TO FOLLOW.
--- NOTE | 2019-04-15 17:31 | NUR ---
PT IS SLEEPING, NO S/S OF DISTRRESS OR DISCOMFORT, RESPIRATIONS SPONTANEOUS EVEN AND UNLABORED.
[2019-04-15] MEDS ORDERED: LIDOcaine 5% patch TP STA (17:53)
[2019-04-15 20:22] VITALS: BP 109/73
== END 2019-04-15 20:05 | disposition home or self-care (01) ==
LOC: ER 14:58
DX: S22.31XA Fracture of one rib, right side, initial encounter for closed fracture (principal); S80.01XA Contusion of right knee, initial encounter; R51 Headache; I25.10 Atherosclerotic heart disease of native coronary artery without angina pectoris; E78.00 Pure hypercholesterolemia, unspecified; I25.2 Old myocardial infarction; I12.9 Hypertensive chronic kidney disease with stage 1 through stage 4 chronic kidney disease, or unspecified chronic kidney disease; N18.9 Chronic kidney disease, unspecified; Z86.73 Personal history of transient ischemic attack (TIA), and cerebral infarction without residual deficits; Z87.442 Personal history of urinary calculi; Z85.038 Personal history of other malignant neoplasm of large intestine; Z90.49 Acquired absence of other specified parts of digestive tract; Z95.1 Presence of aortocoronary bypass graft; Z88.2 Allergy status to sulfonamides; Z88.1 Allergy status to other antibiotic agents; Z79.899 Other long term (current) drug therapy; W18.30XA Fall on same level, unspecified, initial encounter; Y93.89 Activity, other specified; Y92.89 Other specified places as the place of occurrence of the external cause; Y99.9 Unspecified external cause status
CPT/HCPCS: 70450; 71046; 72125; 73030; 74176; 96372; 99284; J2270

== ENCOUNTER 2019-06-08 18:22 | Emergency (ER) | payer OTHER, MEDICARE ==
[~2019-06-08] VITALS: Ht 170.2 cm; Wt 73.6 kg
[~2019-06-08 18:22] MED LIST changes: +AMLO5TAB PO; +CLON0.1T PO; +HCTZ25T PO; +LISI-600 PO; +LORA-268 PO; -LORA-269 PO; -NOR5T PO; +PANT-47 PO; -PANT40TA4 PO; -SIMV-42 PO; +SIMV40TA PO
[2019-06-08] MEDS ORDERED: CLOP75TA35 PO (20:27)
[2019-06-08] MEDS ORDERED: IBUP-1985 PO (20:27)
[2019-06-08] MEDS ORDERED: BISA10SU60 RC (20:27)
[2019-06-08] MEDS ORDERED: ASPI-611 PO (20:27)
[2019-06-08 22:15] VITALS: BP 119/91
== END 2019-06-08 21:47 | disposition home or self-care (01) ==
LOC: ER 18:23
DX: W06.XXXA Fall from bed, initial encounter (principal); I48.91 Unspecified atrial fibrillation; E78.00 Pure hypercholesterolemia, unspecified; I12.9 Hypertensive chronic kidney disease with stage 1 through stage 4 chronic kidney disease, or unspecified chronic kidney disease; N18.9 Chronic kidney disease, unspecified; I25.2 Old myocardial infarction; N20.0 Calculus of kidney; Z85.9 Personal history of malignant neoplasm, unspecified; Z86.73 Personal history of transient ischemic attack (TIA), and cerebral infarction without residual deficits; Z95.1 Presence of aortocoronary bypass graft; Z85.89 Personal history of malignant neoplasm of other organs and systems; Z85.038 Personal history of other malignant neoplasm of large intestine; G47.30 Sleep apnea, unspecified; Z98.890 Other specified postprocedural states; Z88.2 Allergy status to sulfonamides; Z79.899 Other long term (current) drug therapy; Y93.89 Activity, other specified; Y92.89 Other specified places as the place of occurrence of the external cause; Y99.8 Other external cause status
CPT/HCPCS: 70450; 72125; 73502; 73610; 99285

== ENCOUNTER → 2019-07-18 | Emergency (ER) | payer OTHER ==
[~2019-07-18] VITALS: Ht 167.6 cm; Wt 75.0 kg
[~2019-07-18] MED LIST changes: +ASPI-611 PO; +BISA10SU60 RC; +CEPH250T PO; -CLON0.1T PO; +CLOP75TA35 PO; +CefTRIAXone/D5W-Rocephin 1gm 50 ML IV ONE; -HCTZ25T PO; +IBUP-1985 PO; -LACT1CAP26 PO; +LACT1CAP57 PO; -LORA-268 PO; +magnesium 2GM in 50ml NS 50 ML IV ONE; +morphine 4 MG/ML inj SYRINge IV ONE; +ondansetron/PF 4mg/2ml inj IV ONE; +potassium Cl 20 mEq SR tablet PO ONE
[2019-07-18 05:49] LABS: CLARITY,URINE SLIGHTLY CLOUDY (Clear); COLOR,URINE YELLOW (Yellow); GLUCOSE, URINE NEGATIVE (Neg); KETONES,URINE 15 mg/dl (Neg); LEUKOCYTE ESTERASE ,URINE TRACE (Neg); NITRITES, URINE NEGATIVE (Neg); OCCULT BLOOD,URINE NEGATIVE (Neg); PROTEIN,URINE 30 mg/dl (Neg); UROBILINOGEN,URINE 0.2 E.U/dL (0.2-1.0)
[2019-07-18 05:51] LABS: BASOPHILS # (AUTO) 0.1 X10'3 (0-0.2); BASOPHILS % (AUTO) 0.7 % (0-1); EOSINOPHILS % (AUTO) 0.5 % (0-6); HEMATOCRIT 31.8 % (42.0-52.0); HEMOGLOBIN 10.8 g/dl (14.0-17.9); LYMPHOCYTES % (AUTO) 12.6 % (21-51); MEAN CORPUSCULAR HEMOGLOBIN 27.8 PG (27.0-31.0); MEAN CORPUSCULAR HGB CONC 33.9 g/dL (33.0-36.5); MEAN CORPUSCULAR VOLUME 82.1 FL (78-98); MEAN PLATELET VOLUME 7.3 FL (7.4-10.4); MONOCYTES # (AUTO) 1.4 X10'3 (0-0.9); MONOCYTES % (AUTO) 16.7 % (2-12); NEUTROPHILS # (AUTO) 5.7 X10'3 (1.8-7.7); NEUTROPHILS % (AUTO) 69.5 % (42-75); PLATELET COUNT 410 X10'3 (140-440); RED BLOOD COUNT 3.87 X10'6 (4.70-6.10); RED CELL DISTRIBUTION WIDTH 15.3 % (11.5-14.5); UA COLLECTION TYPE URINAL; WHITE BLOOD COUNT 8.1 X10'3 (4.5-11.0)
[2019-07-18 05:55] LABS: BACTERIA,URINE FEW /HPF (Neg); MUCUS STRANDS NONE SEEN /LPF (Neg); RBC,URINE 0-2 /HPF (0-2); SQUAMOUS EPITHELIAL CELL,UR MODERATE /LPF (FEW); WBC CLUMPS,URINE FEW /HPF (NEGATIVE)
--- NOTE | 2019-07-18 06:11 | NUR ---
ESCORTED PT TO CT FOR LIFT ASSISTANCE. PT NOW RETURNED TO ROOM WITHOUT ISSUE. WILL CONTINUE TO MONITOR
[2019-07-18 06:21] LABS: ALANINE AMINOTRANSFERASE 31 U/L (12-78); ALBUMIN 3.4 G/DL (3.4-5.0); ALBUMIN/GLOBULIN RATIO 0.7 (1.1-1.5); ALKALINE PHOSPHATASE 217 IU/L (46-116); ANION GAP 14 (8-16); ASPARTATE AMINO TRANSFERASE 30 U/L (10-37); BILIRUBIN,TOTAL 0.3 MG/DL (0.1-1.0); BLOOD UREA NITROGEN 19 MG/DL (7-18); BUN/CREATININE RATIO 10.5 (5.4-32.0); CALCIUM 10.1 MG/DL (8.5-10.1); CHLORIDE 99 MMOL/L (99-107); CREATININE 1.81 MG/DL (0.60-1.10); GLUCOSE 105 MG/DL (70-104); POTASSIUM 3.2 MMOL/L (3.5-5.1); SODIUM 135 MMOL/L (135-145); TOTAL CARBON DIOXIDE 21.7 MMOL/L (24-32); TOTAL PROTEIN 8.6 G/DL (6.4-8.2); eGFR 37 ML/MIN
[2019-07-18 06:27] LABS: TROPONIN I < 0.04 NG/ML (0.0-0.05)
[2019-07-18 09:09] VITALS: BP 133/72
== END | disposition home or self-care (01) ==
LOC: ER 05:08
DX: N39.0 Urinary tract infection, site not specified (principal); I48.91 Unspecified atrial fibrillation; I25.10 Atherosclerotic heart disease of native coronary artery without angina pectoris; E78.00 Pure hypercholesterolemia, unspecified; I25.2 Old myocardial infarction; G47.30 Sleep apnea, unspecified; I12.9 Hypertensive chronic kidney disease with stage 1 through stage 4 chronic kidney disease, or unspecified chronic kidney disease; N18.9 Chronic kidney disease, unspecified; Z95.1 Presence of aortocoronary bypass graft; Z98.890 Other specified postprocedural states; Z88.2 Allergy status to sulfonamides; Z88.8 Allergy status to other drugs, medicaments and biological substances; Z79.2 Long term (current) use of antibiotics; Z79.82 Long term (current) use of aspirin
CPT/HCPCS: 74176; 80053; 81001; 84484; 85025; 87088; 93005; 96365; 96366; 96367; 96375; 99285; J0696; J2270; J2405; J3475; 87077; 87186

== ENCOUNTER 2019-08-26 15:22 | Inpatient (IN) | payer OTHER, MEDICARE ==
[~2019-08-26] VITALS: Ht 175.3 cm; Wt 64.0 kg
[~2019-08-26 15:22] MED LIST changes: +AMOX-580 PO; -BISA10SU60 RC; -CEPH250T PO; +CLON-529 PO; -CLOP75TA35 PO; -CefTRIAXone/D5W-Rocephin 1gm 50 ML IV ONE; -GABA-534 PO; +GABA300C PO; -IBUP-1985 PO; +LEVE250T PO; -QUET300T19 PO; +QUET400T12 PO; -magnesium 2GM in 50ml NS 50 ML IV ONE; -morphine 4 MG/ML inj SYRINge IV ONE; -ondansetron/PF 4mg/2ml inj IV ONE; -potassium Cl 20 mEq SR tablet PO ONE
[2019-08-26] MEDS ORDERED: CefTRIAXone/D5W-Rocephin 1gm 50 ML IV ONE (16:05)
[2019-08-26] MEDS ORDERED: normal saline 1000ML IV soln IVB ONE ×2 (16:05→18:10)
[2019-08-26 16:41] LABS: PARTIAL THROMBOPLASTIN TIME 27 SECONDS (22-32)
[2019-08-26 16:54] LABS: BASOPHILS % (AUTO) 0.2 % (0-1); EOSINOPHILS % (AUTO) 0.1 % (0-6); HEMATOCRIT 28.4 % (42.0-52.0); HEMOGLOBIN 9.3 g/dl (14.0-17.9); LYMPHOCYTES % (AUTO) 10.7 % (21-51); MEAN CORPUSCULAR HEMOGLOBIN 27.5 PG (27.0-31.0); MEAN CORPUSCULAR HGB CONC 32.8 g/dL (33.0-36.5); MEAN CORPUSCULAR VOLUME 83.7 FL (78-98); MEAN PLATELET VOLUME 7.3 FL (7.4-10.4); MONOCYTES # (AUTO) 1.9 X10'3 (0-0.9); MONOCYTES % (AUTO) 20.8 % (2-12); NEUTROPHILS # (AUTO) 6.3 X10'3 (1.8-7.7); NEUTROPHILS % (AUTO) 68.2 % (42-75); PLATELET COUNT 318 X10'3 (140-440); RED BLOOD COUNT 3.39 X10'6 (4.70-6.10); RED CELL DISTRIBUTION WIDTH 17.5 % (11.5-14.5); WHITE BLOOD COUNT 9.2 X10'3 (4.5-11.0)
[2019-08-26 16:55] LABS: AMMONIA < 10 UMOL/L (11-32)
[2019-08-26 17:19] LABS: ALANINE AMINOTRANSFERASE 28 U/L (12-78); ALBUMIN 3.2 G/DL (3.4-5.0); ALBUMIN/GLOBULIN RATIO 0.6 (1.1-1.5); ALKALINE PHOSPHATASE 172 IU/L (46-116); ANION GAP 19 (8-16); ASPARTATE AMINO TRANSFERASE 15 U/L (10-37); BILIRUBIN,TOTAL 0.4 MG/DL (0.1-1.0); BLOOD UREA NITROGEN 28 MG/DL (7-18); CALCIUM 9.8 MG/DL (8.5-10.1); CHLORIDE 108 MMOL/L (99-107); CREATININE 1.47 MG/DL (0.60-1.10); GLUCOSE 132 MG/DL (70-104); POTASSIUM 3.9 MMOL/L (3.5-5.1); SODIUM 146 MMOL/L (135-145); TOTAL CARBON DIOXIDE 19.4 MMOL/L (24-32); TOTAL PROTEIN 8.2 G/DL (6.4-8.2); eGFR 47 ML/MIN
[2019-08-26 17:22] LABS: ETHANOL < 0.010 GM/DL (0.0-0.010); TROPONIN I < 0.04 NG/ML (0.0-0.05)
[2019-08-26 17:46] LABS: TOTAL CELLS COUNTED 100
[2019-08-26 17:47] LABS: ANISOCYTOSIS 2+; PLATELET ESTIMATE NORMAL; POLYCHROMASIA FEW
[2019-08-26 17:48] LABS: HYPERSEGMENTED NEUTROPHILS 1+
[2019-08-26 17:53] LABS: CLARITY,URINE SLIGHTLY CLOUDY (Clear); COLOR,URINE YELLOW (Yellow); GLUCOSE, URINE NEGATIVE (Neg); KETONES,URINE 40 mg/dl (Neg); LEUKOCYTE ESTERASE ,URINE NEGATIVE (Neg); NITRITES, URINE NEGATIVE (Neg); OCCULT BLOOD,URINE SMALL (Neg); PROTEIN,URINE >=300 mg/dl (Neg); UROBILINOGEN,URINE 0.2 E.U/dL (0.2-1.0)
[2019-08-26 18:01] LABS: ABG BASE EXCESS -5.3 mmol/L (-2.0-3.0); ABG HCO3 16.3 mmol/L (22.0-26.0); ABG OXYGEN SATURATION 97.8 % (95-98); ABG PCO2 (T) 20.3 mmHg (35.0-45.0); ABG PH (T) 7.521 (7.350-7.450); ABG PO2 (T) 106.8 mmHg (83-108); ALLEN'S TEST POSITIVE; FCOHb 0.3 % (0.5-1.5); FMetHb 0.3 % (0.3-1.12); FO2Hb 97.2 % (94-100); PATIENT TEMPERATURE 36.8
[2019-08-26 18:02] LABS: UA COLLECTION TYPE STRAIGHT CATH
[2019-08-26 18:05] LABS: URINE AMPHETAMINE SCREEN NEGATIVE (Neg); URINE BARBITUATE SCREEN NEGATIVE (Neg); URINE BENZODIAZEPINES SCREEN NEGATIVE (Neg); URINE CANNABINOID SCREEN NEGATIVE (Neg); URINE COCAINE SCREEN NEGATIVE (Neg); URINE METHADONE SCREEN NEGATIVE (Neg); URINE OPIATE SCREEN NEGATIVE (Neg); URINE PHENCYCLIDINE SCREEN NEGATIVE (Neg)
[2019-08-26 18:08] LABS: BACTERIA,URINE FEW /HPF (Neg); HYALINE CASTS 0-3 /LPF (NEGATIVE); MUCUS STRANDS FEW /LPF (Neg); RBC,URINE 0-2 /HPF (0-2); SQUAMOUS EPITHELIAL CELL,UR FEW /LPF (FEW)
[2019-08-26] MEDS ORDERED: LISI1TAB29 PO (18:36)
[2019-08-26] MEDS ORDERED: piperacillin/tazo 3.375gm/50ml 50 ML IV ONE (19:55)
--- NOTE | 2019-08-26 19:55 | NUR ---
Pt resting quietly in bed. Respirations unlabored. NAD
[2019-08-26] MEDS ORDERED: magnesium 2GM in 50ml NS 50 ML IV PRN (21:15)
[2019-08-26] MEDS ORDERED: potassium Cl 20 mEq SR tablet PO PRN ×2 (21:15)
[2019-08-26] MEDS ORDERED: magnesium 4gm in 100ml NS 100 ML IV PRN (21:15)
[2019-08-26] MEDS ORDERED: acetaminophen 325mg tablet PO PRN (21:15)
[2019-08-26] MEDS ORDERED: ipratropium/albuterol 3ml nebule NEB PRN (21:15)
[2019-08-26] MEDS ORDERED: mag hydrox/Alum hydrox/simeth 30ml oral suspension PO PRN (21:15)
[2019-08-26] MEDS ORDERED: ondansetron/PF 4mg/2ml inj IV PRN (21:15)
[2019-08-26] MEDS ORDERED: magnesium hydroxide 30ml (MOM) UD suspension PO PRN (21:15)
[2019-08-26] MEDS ORDERED: potassium CL 10mEq/100ml bag 100 ML IV PRN (21:15)
[2019-08-26] MEDS: atorvastatin 20mg tablet PO SCH (22:47)
[2019-08-26] MEDS: normal saline 1000ml 1,000 ML IV SCH (22:48)
[2019-08-26 23:40] VITALS: BP 171/96
[2019-08-27] MEDS: piperacillin/tazo 4.5gm/100ml 100 ML IV SCH ×3 (03:37→20:43)
[2019-08-27 06:00] VITALS: BP 167/105
--- NOTE | 2019-08-27 06:00 | NUR ---
Patient in room ORTHO 4011. I have received report from Wanda COTE and had the opportunity to ask questions and assume patient care.
[2019-08-27] MEDS: amLODIPine 5mg tablet PO SCH (08:00)
[2019-08-27] MEDS: lisinopril 20mg tablet PO SCH (08:00)
[2019-08-27] MEDS: buPROPion SR 100mg tab PO SCH ×2 (08:00→20:00)
[2019-08-27] MEDS ORDERED: non-formulary drug (Lisinopril/Hydrochlorothiazide (Lisinopril-Hctz 20-25 mg Tab) 1 TAB) PO SCH (08:00)
[2019-08-27] MEDS: K and/or MAG REPLACEMENT MC SCH ×2 (08:00→18:50)
[2019-08-27] MEDS: pantoprazole 40mg Tablet.DR PO SCH (08:00)
[2019-08-27] MEDS ORDERED: levetiracetam 250mg tablet PO SCH (08:00)
[2019-08-27] MEDS: ESCITALOPRAM OXALATE 5 MG TABLET PO SCH (08:00)
[2019-08-27] MEDS: HYDROchlorothiazide 25mg tablet PO SCH (08:00)
[2019-08-27 08:14] LABS: HEMATOCRIT 25.8 % (42.0-52.0); HEMOGLOBIN 8.3 g/dl (14.0-17.9); MEAN CORPUSCULAR HGB CONC 32.3 g/dL (33.0-36.5); MEAN CORPUSCULAR VOLUME 83.6 FL (78-98); MEAN PLATELET VOLUME 7.3 FL (7.4-10.4); PLATELET COUNT 252 X10'3 (140-440); RED BLOOD COUNT 3.08 X10'6 (4.70-6.10); RED CELL DISTRIBUTION WIDTH 17.8 % (11.5-14.5); WHITE BLOOD COUNT 9.4 X10'3 (4.5-11.0)
[2019-08-27] MEDS: cloNIDine 0.1 mg tablet PO SCH ×2 (08:19→20:00)
[2019-08-27] MEDS: enoxaparin 40mg/0.4ml syringe SQ SCH (08:21)
[2019-08-27] MEDS: lactobacillus rhamnosus 10,000 MMU CELLS/CAPSULE PO SCH ×2 (08:21→20:00)
[2019-08-27 08:26] LABS: ALANINE AMINOTRANSFERASE 22 U/L (12-78); ALBUMIN/GLOBULIN RATIO 0.6 (1.1-1.5); ALKALINE PHOSPHATASE 149 IU/L (46-116); ANION GAP 13 (8-16); ASPARTATE AMINO TRANSFERASE 19 U/L (10-37); BILIRUBIN,TOTAL 0.4 MG/DL (0.1-1.0); BLOOD UREA NITROGEN 22 MG/DL (7-18); BUN/CREATININE RATIO 17.5 (5.4-32.0); CALCIUM 9.1 MG/DL (8.5-10.1); CHLORIDE 111 MMOL/L (99-107); CREATININE 1.26 MG/DL (0.60-1.10); GLUCOSE 108 MG/DL (70-104); MAGNESIUM 1.7 MG/DL (1.5-2.4); POTASSIUM 3.3 MMOL/L (3.5-5.1); SODIUM 145 MMOL/L (135-145); TOTAL CARBON DIOXIDE 20.6 MMOL/L (24-32); TOTAL PROTEIN 7.7 G/DL (6.4-8.2); eGFR 56 ML/MIN
[2019-08-27] MEDS: aspirin 81mg tab.chew PO SCH (08:30)
--- NOTE | 2019-08-27 08:35 | NUR ---
PATIENT SHAKING HIS HEAD NO WHEN ASKED IF HE CAN TAKE PAILLS, HES WAVING THEM AWAY WITH HIS HAND
[2019-08-27] MEDS: potassium CL 10mEq/100ml bag 100 ML IV PRN ×4 (09:41→15:57)
[2019-08-27] MEDS: normal saline 1000ml 1,000 ML IV SCH ×2 (09:44→12:44)
[2019-08-27 09:55] VITALS: BP 176/101
--- NOTE | 2019-08-27 13:00 | NUR ---
Patient was uncooperative and will not take oral medication. Dr Mast is aware and some medications were switched over to IV route.
--- NOTE | 2019-08-27 13:10 | NUR ---
Malnutrition consult: Pt admit DX acute encephalopathy r/t UTI and possible sepsis per MD note. Pt recently discharged yesterday but care facility could not receive meds per EMR; currently ALOC AOx1. Last admit concerns for stroke but was ruled-out; pt advanced to pureed/thin liquids w/ feeder today per [facility] recs. Pt PO 25-50% mostly last admit fluctuating and currently refusing all PO per RN this AM. Pt seen by RD and RD d/w RN regarding general appearance; RN agrees w/ RD visible assessment of mild muscle/fat wasting clearly present. Pt also has fluctuating wt hx given lack of scaled wts since May admit. Current wt 64kg gurney scale w/ prior bed scale wt 06/26/19 admit 82.6kg. Pt does have DX worsening renal failure r/t dehydration per MD note. Prior bed scale wt likely not entirely accurate and pt current wt to be influenced given dehydration though non-severe wt loss is likely present. PAMELA contacted pt [facility] to request scaled wt hx; pending return call from facility for wt records to further determine accurate wt hx. At this time pt meets minimum criteria for non-severe malnutrition since does not have edema/wounds or significant weakness noted; MD notified. Not appropriate for malnutrition ed at this time. Will continue to monitor for PO diet tolerance and additional protein/kcal needs this admit. Rec: 1. continue pureed/thin diet w/ feeder per [facility] recs; encourage PO 2. monitor for ONS needs pending PO hx and PO acceptance w/ ALOC 3. bowel care as needed 4. weekly scaled wts for accurate wt hx 5. written/verbal malnutrition ed if pt becomes appropriate prior to discharge Addendum: 08/27/19 at [address] Amended: Links added.
[2019-08-27] MEDS ORDERED: levetiracetam inj 500 MG in normal saline 100ml IV soln 95 ML IV SCH (13:40)
[2019-08-27 18:00] VITALS: BP 167/96
--- NOTE | 2019-08-27 18:30 | NUR ---
Problems reprioritized. Patient report given, questions answered & plan of care reviewed with Nohemy COTE.
[2019-08-27] MEDS: gabapentin 300mg capsule PO SCH (20:46)
[2019-08-27] MEDS: quetiapine 100mg tablet PO SCH (20:46)
[2019-08-27] MEDS: atorvastatin 20mg tablet PO SCH (20:46)
--- NOTE | 2019-08-27 20:52 | NUR ---
PLACED SEROQUEL IN APPLESAUCE TO ADMIN. PATIENT REFUSED IT. MEDICATION WAS WASTED. ALL OTHERS WERE RETURNED TO [facility].
[2019-08-27 22:00] VITALS: BP 173/102
--- NOTE | 2019-08-28 01:00 | NUR ---
pt has large areas of reddness from incont. pt unable to use call light when pt has needs. changed linens and applied thick layer of zinc. repositioned.
[2019-08-28] MEDS: piperacillin/tazo 4.5gm/100ml 100 ML IV SCH ×3 (04:12→20:32)
[2019-08-28] MEDS: normal saline 1000ml 1,000 ML IV SCH ×2 (04:13→17:20)
[2019-08-28 06:00] VITALS: BP 157/106
--- NOTE | 2019-08-28 06:22 | NUR ---
REPORT GIVEN TO KERA STILL.
[2019-08-28] MEDS: K and/or MAG REPLACEMENT MC SCH ×2 (08:00→18:57)
[2019-08-28] MEDS: ESCITALOPRAM OXALATE 5 MG TABLET PO SCH (08:00)
[2019-08-28] MEDS: lisinopril 20mg tablet PO SCH (08:00)
[2019-08-28] MEDS: HYDROchlorothiazide 25mg tablet PO SCH (08:00)
[2019-08-28] MEDS: pantoprazole 40mg Tablet.DR PO SCH (08:00)
[2019-08-28] MEDS: cloNIDine 0.1 mg tablet PO SCH (08:00)
[2019-08-28] MEDS: amLODIPine 5mg tablet PO SCH (08:00)
[2019-08-28] MEDS: lactobacillus rhamnosus 10,000 MMU CELLS/CAPSULE PO SCH ×2 (08:00→20:00)
[2019-08-28] MEDS: buPROPion SR 100mg tab PO SCH ×2 (08:00→20:00)
[2019-08-28] MEDS: Levetiracetam-NS 500mg/100ml 100 ML IV SCH ×2 (08:26→20:32)
[2019-08-28] MEDS: aspirin 81mg tab.chew PO SCH (08:30)
[2019-08-28 10:00] VITALS: BP 180/96
[2019-08-28 10:11] LABS: HEMATOCRIT 24.7 % (42.0-52.0); HEMOGLOBIN 7.9 g/dl (14.0-17.9); MEAN CORPUSCULAR HGB CONC 31.9 g/dL (33.0-36.5); MEAN CORPUSCULAR VOLUME 84.5 FL (78-98); MEAN PLATELET VOLUME 7.4 FL (7.4-10.4); PLATELET COUNT 220 X10'3 (140-440); RED BLOOD COUNT 2.92 X10'6 (4.70-6.10); RED CELL DISTRIBUTION WIDTH 17.6 % (11.5-14.5); WHITE BLOOD COUNT 9.4 X10'3 (4.5-11.0)
[2019-08-28 10:32] LABS: ALANINE AMINOTRANSFERASE 19 U/L (12-78); ALBUMIN 2.8 G/DL (3.4-5.0); ALBUMIN/GLOBULIN RATIO 0.6 (1.1-1.5); ALKALINE PHOSPHATASE 145 IU/L (46-116); ANION GAP 16 (8-16); ASPARTATE AMINO TRANSFERASE 24 U/L (10-37); BILIRUBIN,TOTAL 0.5 MG/DL (0.1-1.0); BLOOD UREA NITROGEN 17 MG/DL (7-18); BUN/CREATININE RATIO 14.4 (5.4-32.0); CHLORIDE 108 MMOL/L (99-107); CREATININE 1.18 MG/DL (0.60-1.10); GLUCOSE 79 MG/DL (70-104); MAGNESIUM 1.5 MG/DL (1.5-2.4); POTASSIUM 3.5 MMOL/L (3.5-5.1); SODIUM 144 MMOL/L (135-145); TOTAL CARBON DIOXIDE 20.3 MMOL/L (24-32); TOTAL PROTEIN 7.4 G/DL (6.4-8.2); eGFR 60 ML/MIN
[2019-08-28] MEDS ORDERED: hydrALAZINE 20mg/ml inj. IV PRN (10:55)
[2019-08-28] MEDS ORDERED: hydrALAZINE 20mg/ml inj. IV ONE (10:55)
[2019-08-28] MEDS: enoxaparin 40mg/0.4ml syringe SQ SCH (11:24)
[2019-08-28] MEDS: ciprofloxacin 0.3% 2.5ml ophthalmic solution EACHEYE SCH ×3 (12:53→20:32)
--- NOTE | 2019-08-28 13:30 | NUR ---
Wound care POC. Arrived at bedside for assessment and education regarding ostomy. Pt states he has had the ostomy for quite a while and does care for it himself. I asked if there was anything in particular he was needing additional education about and he stated he couldn't care for it until he was no longer in pain. I asked him if he wanted me to change the bag so I could assess the fabiana-stomal skin and make proper recommendations. He refused changing the appliance. I asked what he treated the skin with at home and he said saline. I educated about ostomy powder to create crust. He states he has ostomy powder so I supplied skin prep spray and adhesive remover. Spoke with primary nurse who states the pt has wanted the appliance changed quite often since admit and was surprised he refused to change it with me. Will follow for any ongoing educational needs. Addendum: 08/28/19 at 1333 by Scar Robert RN Amended: Links added. Addendum: 08/28/19 at 1336 by Scar Robert RN Charted on incorrect pt.
--- NOTE | 2019-08-28 13:36 | NUR ---
Wound care POC. Arrived at bedside for assessment due to consult for IAD. Assessed skin and mild redness to the fabiana area noted. No open areas, no photos taken. Calzime already being used and interventions to control moisture in place. No need for WOC to follow.
[2019-08-28 18:00] VITALS: BP 153/87
--- NOTE | 2019-08-28 18:19 | NUR ---
Problems reprioritized. Patient report given, questions answered & plan of care reviewed with Theresa Guy RN.
--- NOTE | 2019-08-28 18:45 | NUR ---
Sent a page out to david PACE, Dr. Mast regarding the neurologist recommendations in the computer, was unsure if he was aware of them. The neurologist recommended several labs, medications and transfer to higher level of care for cardiac drip to manage the elevated b/p.
[2019-08-28 19:00] VITALS: BP 144/96
[2019-08-28] MEDS ORDERED: cloNIDine 0.1 MG/24 HOUR patch (7 day patch) TD ONE (19:45)
[2019-08-28 20:00] VITALS: BP 147/99
[2019-08-28] MEDS ORDERED: niCARdipine I.V. 50 MG in normal saline 250ml IV soln 230 ML IV SCH (20:20)
--- NOTE | 2019-08-28 20:32 | NUR ---
pt resting, eyes closed. pulls arm away when trying to put BP cuff on. nonverbal.
--- NOTE | 2019-08-28 20:35 | NUR ---
I called Dr. Bridges to inform him of the new orders to transfer patient to PCU on special drip from Dr. Mast. He asked me to find out if the drip can be given on PCU and if it can; then to transfer him. If issue with cardiac drip; then to call him back and give the patient the Catapres patch as previously ordered. Per nursing tan room supervisor the patient can go to PCU on the Cardene drip and she will call back with bed assignment.
[2019-08-28] MEDS: atorvastatin 20mg tablet PO SCH (20:39)
[2019-08-28] MEDS: quetiapine 100mg tablet PO SCH (20:40)
[2019-08-28] MEDS: gabapentin 300mg capsule PO SCH (20:40)
--- NOTE | 2019-08-28 20:42 | NUR ---
received new orders for acycolvir and vanco. LP unable to be done tonight, will have to wait until tomorrow. paged Pro with question to hold or start new antibiotic and antiviral before LP completed.
--- NOTE | 2019-08-28 20:57 | NUR ---
Per Dr. Mast do give the antibiotic and Acyclovir now, do not wait until the LP is done in the morning.
[2019-08-28] MEDS: ACYCLOVIR IV SCH (21:09)
[2019-08-28] MEDS: NORMAL SALINE IV SCH (21:09)
[2019-08-28 22:00] VITALS: BP 114/69
[2019-08-28] MEDS: vancomycin/NS 1 GM ADD-VANTAGE 250 ML IV SCH (23:14)
[2019-08-28] MEDS: niCARDipine-NS 40mg/200ml IVPB 200 ML IV SCH (23:32)
[2019-08-29] MEDS: ciprofloxacin 0.3% 2.5ml ophthalmic solution EACHEYE SCH ×6 (01:43→20:00)
[2019-08-29 02:00] VITALS: BP 117/59
--- NOTE | 2019-08-29 02:31 | NUR ---
I have received report from KERA Cardenas and had the opportunity to ask questions. Pt will be transferred to 2333Y.
--- NOTE | 2019-08-29 02:33 | NUR ---
Pt arrived at the unit from [facility] via gurney accompanied by 2 RNs. Placed on mobile 64.
[2019-08-29] MEDS: piperacillin/tazo 4.5gm/100ml 100 ML IV SCH (03:22)
[2019-08-29] MEDS: ACYCLOVIR IV SCH ×3 (04:18→22:03)
[2019-08-29] MEDS: NORMAL SALINE IV SCH ×3 (04:18→22:03)
--- NOTE | 2019-08-29 05:10 | NUR ---
Dr. Bridges notified of pt's BP trend, and order to continue the Nicardipine drip. Addendum: 08/29/19 at 0538 by Amberly Rockwell RN BP : 117/55 (68); 109/85 (91), 105/59 (70)
[2019-08-29] MEDS: niCARDipine-NS 40mg/200ml IVPB 200 ML IV SCH (05:28)
[2019-08-29 06:00] VITALS: BP 102/53
--- NOTE | 2019-08-29 06:16 | NUR ---
Problems reprioritized. Patient report given, questions answered & plan of care reviewed with KERA Fang.
--- NOTE | 2019-08-29 06:18 | NUR ---
Patient in room PCU 3011. I have received report from KERA Bruce and had the opportunity to ask questions and assume patient care.
[2019-08-29] MEDS: HYDROchlorothiazide 25mg tablet PO SCH (08:00)
[2019-08-29] MEDS: amLODIPine 5mg tablet PO SCH (08:00)
[2019-08-29] MEDS: lactobacillus rhamnosus 10,000 MMU CELLS/CAPSULE PO SCH ×2 (08:00→20:00)
[2019-08-29] MEDS: ESCITALOPRAM OXALATE 5 MG TABLET PO SCH (08:00)
[2019-08-29] MEDS: buPROPion SR 100mg tab PO SCH ×2 (08:00→20:00)
[2019-08-29] MEDS: K and/or MAG REPLACEMENT MC SCH ×2 (08:00→20:00)
[2019-08-29] MEDS: enoxaparin 40mg/0.4ml syringe SQ SCH (08:00)
[2019-08-29] MEDS: lisinopril 20mg tablet PO SCH (08:00)
[2019-08-29] MEDS: pantoprazole 40mg Tablet.DR PO SCH (08:00)
[2019-08-29] MEDS: aspirin 81mg tab.chew PO SCH (08:30)
[2019-08-29] MEDS: vancomycin/NS 1 GM ADD-VANTAGE 250 ML IV SCH (09:49)
[2019-08-29] MEDS: Levetiracetam-NS 500mg/100ml 100 ML IV SCH (09:49)
[2019-08-29 11:00] VITALS: BP 143/67
[2019-08-29] MEDS: normal saline 1000ml 1,000 ML IV SCH (12:22)
[2019-08-29 15:00] VITALS: BP 93/72
[2019-08-29 18:00] VITALS: BP 150/89
--- NOTE | 2019-08-29 18:25 | NUR ---
Problems reprioritized. Patient report given, questions answered & plan of care reviewed with Elian RN.
--- NOTE | 2019-08-29 18:30 | NUR ---
Patient in room PCU 3011. I have received report from Annalisa COTE and had the opportunity to ask questions and assume patient care.
--- NOTE | 2019-08-29 20:15 | NUR ---
NOTIFIED pt had 6beat run of V-tach and converted to A-flutter in the 100's. Dr Bridges requested Mg and K to be drawn, made aware that pt refused AM labs, will attempt to do a blood draw if pt will allow.
[2019-08-29] MEDS: atorvastatin 20mg tablet PO SCH (21:00)
[2019-08-29] MEDS: gabapentin 300mg capsule PO SCH (21:00)
[2019-08-29] MEDS: quetiapine 100mg tablet PO SCH (21:00)
--- NOTE | 2019-08-29 21:26 | NUR ---
NOTIFIED pt refusing blood draws, additionally we are unable to keep tele leads on pt because he pulls them off as soon as they are put o
[2019-08-29 22:00] VITALS: BP 131/76
[2019-08-30] MEDS: ciprofloxacin 0.3% 2.5ml ophthalmic solution EACHEYE SCH ×6 (04:00→20:00)
[2019-08-30] MEDS: ACYCLOVIR IV SCH ×3 (05:15→21:55)
[2019-08-30] MEDS: NORMAL SALINE IV SCH ×3 (05:15→21:55)
--- NOTE | 2019-08-30 06:20 | NUR ---
Patient in room PCU 3011. I have received report from KERA Plummer and had the opportunity to ask questions and assume patient care.
--- NOTE | 2019-08-30 06:22 | NUR ---
Problems reprioritized. Patient report given, questions answered & plan of care reviewed with Lalita COTE.
[2019-08-30 07:00] VITALS: BP 142/59
[2019-08-30] MEDS: pantoprazole 40mg Tablet.DR PO SCH (08:00)
[2019-08-30] MEDS: ESCITALOPRAM OXALATE 5 MG TABLET PO SCH (08:00)
[2019-08-30] MEDS: lisinopril 20mg tablet PO SCH (08:00)
[2019-08-30] MEDS: K and/or MAG REPLACEMENT MC SCH ×2 (08:00→20:00)
[2019-08-30] MEDS: buPROPion SR 100mg tab PO SCH ×2 (08:00→20:00)
[2019-08-30] MEDS: amLODIPine 5mg tablet PO SCH (08:00)
[2019-08-30] MEDS: HYDROchlorothiazide 25mg tablet PO SCH (08:00)
[2019-08-30] MEDS: lactobacillus rhamnosus 10,000 MMU CELLS/CAPSULE PO SCH ×2 (08:00→20:00)
[2019-08-30] MEDS: aspirin 81mg tab.chew PO SCH (08:30)
[2019-08-30] MEDS ORDERED: VANCOMYCIN LEVEL IV ONE (09:30)
[2019-08-30] MEDS: levetiracetam inj 500 MG in normal saline 100ml IV soln 100 ML IV SCH ×2 (09:34→20:42)
[2019-08-30 09:36] LABS: HEMATOCRIT 26.2 % (42.0-52.0); HEMOGLOBIN 8.6 g/dl (14.0-17.9); MEAN CORPUSCULAR HEMOGLOBIN 27.8 PG (27.0-31.0); MEAN CORPUSCULAR HGB CONC 32.7 g/dL (33.0-36.5); MEAN CORPUSCULAR VOLUME 84.8 FL (78-98); PLATELET COUNT 269 X10'3 (140-440); RED CELL DISTRIBUTION WIDTH 17.8 % (11.5-14.5); WHITE BLOOD COUNT 12.8 X10'3 (4.5-11.0)
[2019-08-30 09:52] LABS: ALANINE AMINOTRANSFERASE 19 U/L (12-78); ALBUMIN/GLOBULIN RATIO 0.6 (1.1-1.5); ALKALINE PHOSPHATASE 140 IU/L (46-116); ANION GAP 17 (8-16); ASPARTATE AMINO TRANSFERASE 21 U/L (10-37); BILIRUBIN,TOTAL 0.3 MG/DL (0.1-1.0); BLOOD UREA NITROGEN 11 MG/DL (7-18); BUN/CREATININE RATIO 8.7 (5.4-32.0); CALCIUM 9.4 MG/DL (8.5-10.1); CHLORIDE 113 MMOL/L (99-107); CREATININE 1.27 MG/DL (0.60-1.10); GLUCOSE 98 MG/DL (70-104); MAGNESIUM 1.6 MG/DL (1.5-2.4); POTASSIUM 3.4 MMOL/L (3.5-5.1); SODIUM 147 MMOL/L (135-145); TOTAL CARBON DIOXIDE 16.7 MMOL/L (24-32); TOTAL PROTEIN 7.7 G/DL (6.4-8.2); eGFR 55 ML/MIN
[2019-08-30] MEDS: normal saline 1000ml 1,000 ML IV SCH (10:34)
[2019-08-30 11:00] VITALS: BP 107/49
--- NOTE | 2019-08-30 11:08 | NUR ---
PAGER ID: [phone] MESSAGE: [id number]: Edi Fishman - Pt potassium 3.4, no replacement orders. May I have one? Kindly advise! -[id number]
[2019-08-30] MEDS: enoxaparin 40mg/0.4ml syringe SQ SCH (11:13)
[2019-08-30] MEDS ORDERED: magnesium 4gm in 100ml NS 100 ML IV PRN (11:25)
[2019-08-30] MEDS ORDERED: K and/or MAG REPLACEMENT MC SCH (11:25)
[2019-08-30] MEDS ORDERED: potassium Cl 20 mEq SR tablet PO PRN ×2 (11:25)
[2019-08-30] MEDS ORDERED: magnesium Cl slow-release 64mg tablet PO PRN (11:25)
[2019-08-30] MEDS: potassium CL 10mEq/100ml bag 100 ML IV PRN ×4 (11:57→16:59)
[2019-08-30 15:00] VITALS: BP 148/85
--- NOTE | 2019-08-30 17:25 | NUR ---
PAGER ID: [phone] MESSAGE: [id number]: Edi Fishman - Pt sister, Rena Hernandez, is returning your call. [phone]. Eve [phone]
[2019-08-30 18:00] VITALS: BP 154/79
--- NOTE | 2019-08-30 18:04 | NUR ---
Problems reprioritized. Patient report given, questions answered & plan of care reviewed with Elian RN.
--- NOTE | 2019-08-30 18:30 | NUR ---
Patient in room PCU 3011. I have received report from Lalita COTE and had the opportunity to ask questions and assume patient care.
[2019-08-30] MEDS ORDERED: LEVETIRACETAM NS 500 MG/100 ML IV SCH (20:23)
[2019-08-30] MEDS ORDERED: Levetiracetam-NS 500mg/100ml 100 ML IV SCH (20:24)
[2019-08-30] MEDS: quetiapine 100mg tablet PO SCH (21:00)
[2019-08-30] MEDS: gabapentin 300mg capsule PO SCH (21:00)
[2019-08-30] MEDS: atorvastatin 20mg tablet PO SCH (21:00)
[2019-08-30] MEDS ORDERED: haloperidol lactate 5mg/ml inj IM ONE (22:15)
[2019-08-31] MEDS: ciprofloxacin 0.3% 2.5ml ophthalmic solution EACHEYE SCH ×3 (03:07→08:00)
[2019-08-31] MEDS: normal saline 1000ml 1,000 ML IV SCH (04:22)
[2019-08-31] MEDS: NORMAL SALINE IV SCH (05:08)
[2019-08-31] MEDS: ACYCLOVIR IV SCH (05:08)
--- NOTE | 2019-08-31 06:09 | NUR ---
Problems reprioritized. Patient report given, questions answered & plan of care reviewed with Riana COTE.
--- NOTE | 2019-08-31 06:18 | NUR ---
Patient in room PCU 3011. I have received report from Elian RN and had the opportunity to ask questions and assume patient care.
[2019-08-31] MEDS: ESCITALOPRAM OXALATE 5 MG TABLET PO SCH (08:00)
[2019-08-31] MEDS: amLODIPine 5mg tablet PO SCH (08:00)
[2019-08-31] MEDS: lactobacillus rhamnosus 10,000 MMU CELLS/CAPSULE PO SCH (08:00)
[2019-08-31] MEDS: pantoprazole 40mg Tablet.DR PO SCH (08:00)
[2019-08-31] MEDS: HYDROchlorothiazide 25mg tablet PO SCH (08:00)
[2019-08-31] MEDS: lisinopril 20mg tablet PO SCH (08:00)
[2019-08-31] MEDS: buPROPion SR 100mg tab PO SCH (08:00)
[2019-08-31] MEDS: K and/or MAG REPLACEMENT MC SCH (08:00)
[2019-08-31] MEDS: aspirin 81mg tab.chew PO SCH (08:30)
--- NOTE | 2019-08-31 09:28 | NUR ---
Sent page to Dr. Mast: [phone] Edi Fishman: Transport pickup time is at 1000, there is no discharge order in yet and need time to process paperwork. Thank you, Riana [phone]
[2019-08-31] MEDS: enoxaparin 40mg/0.4ml syringe SQ SCH (09:46)
--- NOTE | 2019-08-31 10:54 | NUR ---
Patient ready for discharge per MD order. Caregiver Melissa notified of transfer. IV's removed with catheter intact. Belongings packed and sent with patient.
== END 2019-08-31 10:15 | disposition hospice, home (50) | DRG 97 ==
LOC: ER 15:22 → ED HOLD 21:12 → ORTHO 4S 23:20 → PCU 3S 08-28 22:00
PROVIDERS: ADMIT Family Medicine; ATTEND Family Medicine
PROC: 4A10X4Z Monitoring of Central Nervous Electrical Activity, External Approach (ICD-10-PCS; principal; 2019-08-27)
DX: G04.90 Encephalitis and encephalomyelitis, unspecified (principal); I67.83 Posterior reversible encephalopathy syndrome; G93.41 Metabolic encephalopathy; E87.3 Alkalosis; N39.0 Urinary tract infection, site not specified; I69.951 Hemiplegia and hemiparesis following unspecified cerebrovascular disease affecting right dominant side; E87.0 Hyperosmolality and hypernatremia; N17.9 Acute kidney failure, unspecified; Z88.1 Allergy status to other antibiotic agents; Z88.8 Allergy status to other drugs, medicaments and biological substances; I25.2 Old myocardial infarction; E86.0 Dehydration; G40.909 Epilepsy, unspecified, not intractable, without status epilepticus; E78.5 Hyperlipidemia, unspecified; F32.9 Major depressive disorder, single episode, unspecified; F41.9 Anxiety disorder, unspecified; D64.9 Anemia, unspecified; B95.62 Methicillin resistant Staphylococcus aureus infection as the cause of diseases classified elsewhere; Z66 Do not resuscitate; I25.10 Atherosclerotic heart disease of native coronary artery without angina pectoris; E78.00 Pure hypercholesterolemia, unspecified; I48.91 Unspecified atrial fibrillation; I12.9 Hypertensive chronic kidney disease with stage 1 through stage 4 chronic kidney disease, or unspecified chronic kidney disease; N18.9 Chronic kidney disease, unspecified; Z90.49 Acquired absence of other specified parts of digestive tract; Z95.1 Presence of aortocoronary bypass graft; Z87.891 Personal history of nicotine dependence; Z85.038 Personal history of other malignant neoplasm of large intestine; Z85.46 Personal history of malignant neoplasm of prostate; Z87.442 Personal history of urinary calculi
CPT/HCPCS: 36415; 36600; 70450; 70544; 70547; 70551; 71045; 80053; 80202; 80305; 80320; 81001; 82140; 82803; 82948; 83605; 83735; 84484; 85018; 85025; 85027; 85610; 85730; 87040; 87081; 87088; 92508; 92616; 93005; 94760; 95816; 96361; 96365; 97110; 97112; 97161; 97530; 99285; G0378; J0133; J0360; J0696; J1630; J1650; J1953; J2543; J3370; J3480; J7030; J7050